=== PATIENT | male | born 1940 | race Caucasian/White ===

== ENCOUNTER 2016-07-20 00:02 | Observation (INO) | payer MEDICARE, OTHER ==
[~2016-07-20] VITALS: Ht 177.8 cm; Wt 78.9 kg
[~2016-07-20 00:02] MED LIST: ADV250INH INH; ASPI1TAB PO; COMBAER6 INH; METF500T PO; MUCI600T34 PO; VITA100066 PO; ZYRT10TA2 PO
[2016-07-20] MEDS ORDERED: MORPHINE 4 MG/ML 1ML SYRINGE As Ordered ONE ×3 (01:05→05:37)
[2016-07-20] MEDS ORDERED: ONDANSETRON 4MG/2ML VIAL (J2405) As Ordered ONE (01:05)
--- NOTE | 2016-07-20 02:00 | REPUSA ---
CLINICAL HISTORY: Edema. COMMENTS: Real time sonography with duplex doppler of the right lower extremity was performed with attention to the major deep venous structures. Evaluation reveals the right common femoral, superficial femoral and popliteal veins to be completely compressible without intraluminal thrombus. There is normal spontaneous phasic flow and augmentation . The greater saphenous/common femoral vein junction is patent. No reflux was noted. IMPRESSION: No evidence of DVT in right lower extremity. Thank you for your kind referral of this patient.
[2016-07-20] MEDS ORDERED: KETOROLAC 30 MG/ML VIAL (J1885) As Ordered ONE (04:23)
[2016-07-20] MEDS ORDERED: ONDANSETRON 4MG/2ML VIAL (J2405) IV PRN (06:00)
[2016-07-20] MEDS ORDERED: ACETAMINOPHEN TAB 650MG DOSE (2X325MG) PO PRN (06:00)
[2016-07-20] MEDS ORDERED: PERCOCET 5MG/325MG TAB PO PRN (06:00)
[2016-07-20] MEDS ORDERED: METF500T4 PO (07:19)
[2016-07-20] MEDS ORDERED: GUAI1TAB PO (07:20)
[2016-07-20] MEDS ORDERED: PRED10TA PO (07:21)
--- NOTE | 2016-07-20 07:26 | HPEPDOC ---
Medical History and Physical Date of Admission Jul 20, 2016 at 05:27 History and Physical PRIMARY CARE PROVIDER: Dr. Moon CHIEF COMPLAINT: Right hip pain HISTORY OF PRESENT ILLNESS: Patient is a 76-year-old male with past medical history significant for COPD, type 2 diabetes who presents to the emergency department complaining of a right- sided hip pain. Recent says that his pain began last Thursday when he was picking up some firewood. He says at that time he heard something pop and then got pain. He says that he saw his chiropractor on and they tried to adjust his hip. He presented to emergency department due to worsening of his pain. He currently rates his pain 7/10, at its worst 10/10. Pain is described as "like an ax blade to his hip." He is unable to bear weight on his right leg right now. Pain is located in the lateral aspect of his right hip. He denies any low back pain, knee pain, numbness, tingling, paresthesias. ALLERGIES: None PAST MEDICAL HISTORY: COPD, hil-sbttcwe-ksalqhnla diabetes PAST SURGICAL HISTORY: Left hand surgery, left eye surgery, appendectomy SOCIAL HISTORY: Patient is a former smoker. He quit approximately 18 years ago, smoked for 40 years before that, on average smoked approximately 2 packs per day. He drinks one to 2 alcoholic beverages per day. He denies any recreational drug use. He lives at home with his and dog. CODE STATUS: Full code REVIEW OF SYSTEMS: Constitutional: Positive for sweats tonight, denies fevers, chills HEENT: Head: denies headaches, dizziness, light-headedness. Eyes: denies blurry vision, double vision. Ears: denies hearing loss, tinnitus, ear pain. Nose: denies sinus pain, pressure, rhinorrhea, postnasal drip. Throat: denies sore throat, cough, difficulty swallowing Cardiovascular: denies chest discomfort/pain, palpitations Respiratory: Positive for occasional shortness of breath with activity Gastrointestinal: denies nausea, vomiting, diarrhea, constipation, abdominal pain, melena, hematochezia : denies dysuria, hematuria Musculoskeletal: Positive for right-sided hip pain, denies any other muscle aches or pains Neurological: denies numbness, tingling, paresthesias Lymphatics: denies palpable lymph nodes or swollen glands Integumentary: denies any cuts, rashes, bruises Endocrine: denies polyuria, polydipsia. PHYSICAL EXAMINATION: Vitals: Temperature 97.0, pulse 62, respiratory rate 20, blood pressure 154/72, pulse ox 96% on room air General: Patient awake in stretcher, alert and oriented, verbal and able to answer questions appropriately. He does not appear to be in any acute distress but does have visible pain when moving. HEENT: Head: normocephalic, atraumatic. Eyes: pupils equally reactive to light , conjunctiva are pink, sclera are nonicteric. Throat: buccal mucosa is pink and moist with no lesions in the oropharynx Respiratory: clear to auscultation bilaterally with no wheezes, rales, or rhonchi. Cardiovascular: regular rate and rhythm, with no murmurs, rubs or gallops. Abdomen: soft, nontender, nondistended, no hepatosplenomegaly appreciated. Bowel sounds present. Extremities: Tenderness to palpation over lateral aspect of her right hip, 5/5 strength in upper and lower extremities bilaterally Neurological: sensation intact and symmetrical in upper and lower extremities bilaterally Lymphatics: no palpable lymph nodes, swollen glands Integumentary: skin free from rashes, lesions, abrasions Vascular: Radial pulses palpable bilaterally LABORATORY DATA: CBC, BMP, ESR, CRP ordered RADIOLOGY: Right lower extreme in the ultrasound: No evidence for DVT Right hip x-ray: Interpreted by myself: Negative for fracture or dislocation ASSESSMENT: Patient is a 76-year-old male with right hip pain, inability to bear weight on right leg. Patient will be admitted for further evaluation and treatment. PLAN: #1: Right-sided trochanteric bursitis: Patient will be admitted to [facility] under care of Dr. Jones. Patient will be given Tylenol 650 mg by mouth every 4 hours when necessary, oxycodone 1-2 tabs by mouth every 4 hours when necessary for pain. Orthopedics has been consulted for evaluation for possible injection. Order for physical therapy evaluate and treat has been placed. Further evaluation with BMP, CBC, ESR, CRP. #2: Hpw-rbxhrsv-mlppmqliu type 2 diabetes: Last A1c in [facility] records from April 2016 show A1c of 6.1. For admission we will hold metformin while hospitalized, order placed for consistent carbohydrate diet. BMP has been ordered pending results from blood sugar patient may require a sliding scale insulin. #3: COPD: Order placed for DuoNeb 1 inhalation every 4 hours when necessary, Advair 250/50 one puff twice a day, Mucinex 600 mg by mouth twice a day, prednisone 10 mg by mouth every evening #4: Allergic rhinitis: Order placed for cetirizine 10 mg by mouth daily #5: Vitamin D deficiency: Order placed for vitamin D 1000 units by mouth daily #6: DVT prophylaxis: Order placed for heparin 5000 units subcutaneously every 8 hours My preceptor for this patient encounter was physically present in the building during the encounter and was fully available. As needed, all aspects of the patient interview, examination, medical decision making process, and medical care plan development were reviewed and approved by the preceptor. Preceptor is aware and concurs with the plan as stated in the body of this note and will attest to such by his/her cosignature. Attending Note: I was present for discussion and assisted with the development of the treatment plan for the patient above. The Resident was given guidance and the patient will be followed appropriately by an attending physician during the remaining hospital stay. Vital Signs Temperature 97.0, pulse 62, respiratory rate 20, blood pressure 154/72, pulse ox 96% on room air Home Medications Scheduled Aspirin (Aspirin 81) 81 Mg Tab 81 MG PO QPM Cetirizine HCl (Zyrtec Allergy) 10 Mg Tab 10 MG PO QPM Cholecalciferol (Vitamin D) 1,000 Unit Tab 1,000 UNIT PO QPM Docusate Sodium (Colace) 100 Mg Cap 100 MG PO BID Guaifenesin (Guaifenesin ER) 600 Mg Tab 600 MG PO BID Metformin Hydrochloride (Metformin HCl ER) 500 Mg Tab 500 MG PO BID Prednisone (Prednisone) 10 Mg Tab 10 MG PO QPM Salmeterol/Fluticasone (Advair Diskus 250-50 Mcg/Dose) 14 Puff/Inhaler Aerp 1 PUFF INH BID Scheduled PRN Albuterol/Ipratropium (Combivent Respimat 20-100 Mcg/Act) 1 Aer Aer 2 PUFF INH Q4H PRN PRN SHORTNESS OF BREATH Naproxen (Naproxen) 250 Mg Tab 250 MG PO BIDP PRN PRN pain Oxycodone/Acetaminophen (Oxycodone/Acetaminophen 5-325 mg) 1 Tab Tab 1 TAB PO Q6HP PRN PRN pain Allergies Coded Allergies: No Known Allergies (Verified Allergy, Unknown, 06/16/04) VINCE LYON DO Jul 20, 2016 07:26 ARIELA BURRELL DO Jul 28, 2016 14:37
[2016-07-20] MEDS ORDERED: IPRATROPIUM 0.5MG/ALBUTEROL 2.5MG INH SOL UD 3ML (DUONEB)(J7620) INH PRN (07:30)
[2016-07-20 08:00] VITALS: BP 143/69
[2016-07-20] MEDS ORDERED: PERCOCET 5MG/325MG TAB As Ordered ONE (08:22)
[2016-07-20 08:28] LABS: MEAN CORPUSCULAR HEMOGLOBIN 33.1 pg (27.0-33.0); MEAN CORPUSCULAR HGB CONC 33.7 g/dl (32.0-36.5); MEAN CORPUSCULAR VOLUME 98.1 fl (80.0-96.0); RED CELL DISTRIBUTION WIDTH 12.6 % (11.5-14.5); WHITE BLOOD COUNT 7.7 K/mm3 (4.0-10.0)
[2016-07-20] MEDS: PERCOCET 5MG/325MG TAB PO PRN ×2 (08:29→20:17)
[2016-07-20 08:36] LABS: ANION GAP 6 MEQ/L (8-16); BLOOD UREA NITROGEN 18 MG/DL (7-18); CALCIUM LEVEL 9.2 MG/DL (8.8-10.2); CARBON DIOXIDE LEVEL 31 MEQ/L (21-32); CHLORIDE LEVEL 105 MEQ/L (98-107); CREATININE FOR GFR 0.97 MG/DL (0.70-1.30); GLOMERULAR FILTRATION RATE > 60.0 (>42); GLUCOSE, FASTING 145 MG/DL (83-110); POTASSIUM SERUM 4.1 MEQ/L (3.5-5.1); SODIUM LEVEL 142 MEQ/L (136-145)
[2016-07-20] MEDS ORDERED: DEXTROSE 50% 50 ML SYRINGE IV PRN (08:45)
[2016-07-20] MEDS ORDERED: GLUCAGON FOR INJ 1 MG VIAL (J1610) SC PRN (08:45)
[2016-07-20] MEDS ORDERED: GLUCOSE 4 GM CHEW TABLET PO PRN (08:45)
--- NOTE | 2016-07-20 08:50 | REP ---
Clinical: Pain Technique: AP and frog-lateral views of the right hip. Findings: Moderate arthritic degenerative changes. No acute fracture or dislocation. Impression: Moderate degenerative changes. No fracture or dislocation. Signed by Cristi Diehl MD 07/20/2016 08:41 A
[2016-07-20] MEDS: guaiFENesin ER 600 MG TAB PO SCH ×2 (09:27→20:15)
[2016-07-20] MEDS: ADVAIR DISKUS 250/50 INH PWD INH SCH ×2 (10:30→20:29)
[2016-07-20] MEDS: HumaLOG INSULIN (NovoLOG) PER UNIT SC SCH ×3 (12:00→21:00)
[2016-07-20] MEDS ORDERED: CARISOPRODOL 350 MG TAB As Ordered ONE (13:21)
[2016-07-20] MEDS ORDERED: GABAPENTIN 100 MG CAP As Ordered ONE (13:21)
[2016-07-20] MEDS: CARISOPRODOL 350 MG TAB PO SCH ×2 (13:22→20:16)
[2016-07-20] MEDS: GABAPENTIN 100 MG CAP PO SCH ×2 (13:22→20:15)
[2016-07-20] MEDS: LIDOCAINE 5% (LIDODERM) PATCH TD SCH (13:26)
[2016-07-20 14:00] VITALS: BP 160/75
--- NOTE | 2016-07-20 15:27 | EDDOCDS ---
Nurse's Notes [facility] Name: Jose Rivera Age: 76 yrs Sex: Male : 1940 Arrival Date: 07/20/2016 Time: 00:02 Bed Admit Hold Private MD: Diagnosis: Pain in right hip;Difficulty in walking, not elsewhere classified Presentation: 07/20 00:05 Presenting complaint: EMS states: right sided hip cause, pt thinks due to a pinched mlc nerve. pain starting Thursday, seen chiropractor . pt is unable to bear weight on hip. Adult Sepsis Screening: The patient does not have new or worsening altered mentation. Patient's respiratory rate is less than 22. Systolic blood pressure is greater than 100. Patient has a qSOFA score of 0- Negative Sepsis Screen. Suicide/Homicide risk assessment- the patient denies having any suicidal and/or homicidal ideations and does not present with any other emotional, behavioral or mental health complaints. 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 Transition of care: patient was not received from another setting of care. 00:05 Acuity: KELLY Level 3 mlc 00:05 Method Of Arrival: Ambulance mlc Triage Assessment: 00:05 General: pt states he moved a piece of wood and that is when pain started. mlc 00:09 General: Appears in no apparent distress, uncomfortable, Behavior is cooperative. Pain: mlc Location: right hip Pain currently is 7 out of 10 on a pain scale. The patient is triaged at the bedside. See Assessment in Nurses Notes section of ED record. Neurological: Level of Consciousness is awake, alert, obeys commands, Oriented to person, place, time. Respiratory: Airway is patent Respiratory effort is even, unlabored, Respiratory pattern is regular. Derm: Skin is pink, warm & dry. Musculoskeletal: Range of motion limited in right hip. Historical: - Allergies: No known drug Allergies; - Home Meds: 1. metformin 500 mg Oral tab daily 2. aspirin 81 mg Oral tab 1 tab once daily - PMHx: COPD; Diabetes - NIDDM: controlled; - PSHx: left hand; Appendectomy; - Social history: Smoking status: Patient states former smoker of tobacco. No barriers to communication noted, The patient speaks fluent Congolese. - Family history: Not pertinent. - : The pt / caregiver states he / she is not on anticoagulants. Home medication list is obtained from the patient. - Exposure Risk Screening:: None identified. Screenin:00 Screening information is obtained from the patient. Fall risk: At risk due to pain in js15 right hip. The following interventions are performed due to a positive Fall Risk Screen: side rails upx2, bed in low position, call light in reach, family at bedside. Assistance ADL's: requires no assistance with activities of daily living. Abuse/DV Screen: The patient / caregiver reports he/she is: not in a situation that causes fear, pain or injury. Nutritional screening: No deficits noted. Advance Directives: There is no active DNR order. home support is adequate. Assessment: 01:00 General: Appears in no apparent distress, uncomfortable, Behavior is appropriate for [facility] age, cooperative. Pain: Location: right hip Pain currently is 8 out of 10 on a pain scale. Neurological: Level of Consciousness is awake, alert, obeys commands, Oriented to person, place, time. Respiratory: Airway is patent Respiratory effort is even, unlabored, Respiratory pattern is regular, symmetrical. Derm: Skin is pink, warm & dry. 02:00 Reassessment: Patient appears in no apparent distress at this time. Pt resting on [facility] stretcher, respirations even and unlabored; skin pink, warm, dry, reports pain 3/10 in right hip. 03:00 Reassessment: Patient appears in no apparent distress at this time. Pt resting on [facility] stretcher with eyes closed; respirations even and unlabored; skin pink, warm, dry. 04:30 General: Appears in no apparent distress, comfortable, to be sleeping. Behavior is. js Respiratory: Airway is patent Respiratory effort is even, unlabored, Respiratory pattern is regular, symmetrical. Derm: Skin is pink, warm & dry. 05:30 Reassessment: Patient appears in no apparent distress at this time. Hospitalist at [facility] bedside, pt awake and alert, respirations even and unlabored; skin pink, warm, dry. 06:30 Reassessment: Patient appears in no apparent distress at this time. Pt appears to be [facility] sleeping upon entry to room; arouses easily to verbal stimuli; respirations even and unlabored; skin pink, warm, dry. Vital Signs: 00:09 BP 191 / 101; Pulse 66; Resp 20; Temp 97.0(O); Pulse Ox 100% on R/A; Weight 79.38 kg; [facility] Height 5 ft. 10 in. (177.80 cm); Pain 7/10; 01:40 Pain 3/10; js15 05:39 BP 154 / 72 (auto/); js15 05:41 Pulse 60 MON; Pulse Ox 94% ; js15 06:15 BP 165 / 78 (auto/); js15 06:17 Pulse 60 MON; Pulse Ox 92% ; js15 06:37 Temp 97.2(O); js15 00:09 Body Mass Index 25.11 (79.38 kg, 177.80 cm) [facility] Vitals: 00:09 Log In Time N/A - ambulance arrival. [facility] ED Course: 00:03 Patient visited by Bob Galdamez, Button Clamper. ml3 00:03 Kristen Duncan,CAT is Primary Nurse. ml3 00:03 Shelley Simeon,CAT is Primary Nurse. mm11 00:03 Patient moved to Waiting ml3 00:03 Patient moved to 2 ml3 00:03 Patient moved to 13 mm11 00:07 Triage Initiated mlc 00:13 Patient visited by Cheryl Ann RN. mlc 00:46 Arthur Varela DO is Attending Physician. mm11 00:46 Patient visited by Arthur Varela DO. mm11 00:54 Patient visited by Arthur Varela DO. mm11 00:54 Primary Nurse role handed off by Shelley Simeon RN anat 01:00 The patient / caregiver is instructed regarding the plan of care and ED course. js15 01:02 Inserted saline lock: 18 gauge in left antecubital area The patient tolerated the js15 procedure well. 01:07 Patient moved to Ultrasound hgl 01:22 Patient moved to 13 hgl 01:36 Patient visited by Lydia Morgan RN. js15 02:28 DVT US Lower Returned. EDMS 02:37 Patient visited by Lydia Morgan,CAT. js15 03:45 Patient visited by Arthur Varela DO. mm11 04:54 Patient visited by Lydia Morgan,CAT. js15 05:18 Bennett Potts DO is Hospitalizing Provider. mm11 06:31 Patient moved to Admit Hold ml3 06:40 Patient moved to Jun 06:41 Patient moved to Admit Hold ml3 09:13 Hip, (AP/Lat) Returned. EDMS 11:44 Primary Nurse role handed off by Kristen Duncan,RN kr3 Administered Medications: 01:10 Drug: morphine 4 mg [morphine 4 mg/mL intravenous cartridge (1 mL)] Route: IVP; Site: js15 left antecubital; 01:40 Follow up: Pain 3/10 Adult; Response: Pain is decreased js15 01:10 Drug: Ondansetron 4 mg [ondansetron HCl 2 mg/mL intravenous solution (2 mL)] Route: js15 IVP; Site: left antecubital; 02:38 Drug: morphine 4 mg [morphine 4 mg/mL intravenous cartridge (1 mL)] Route: IVP; Site: js15 left antecubital; 03:15 Follow up: Response: Pain is decreased js15 04:30 Drug: ketorolac 15 mg [ketorolac 30 mg/mL (1 mL) injection solution (0.5 mL)] Route: js15 IVP; Site: left antecubital; 04:30 Drug: Diazepam 5 mg [diazepam 5 mg/mL injection syringe (1 mL)] Route: IVP; Site: left js15 antecubital; 05:41 Drug: morphine 4 mg [morphine 4 mg/mL intravenous cartridge (1 mL)] Route: IVP; Site: js15 left antecubital; 06:38 Follow up: Response: pt resting on stretcher with eyes closed; appears to be sleeping js15 Order Results: Lab Order: COMPLETE BLOOD COUNT; SPEC'M 07/20/16 08:01 Test: WHITE BLOOD COUNT; Value: 7.7; Range: 4.0-10.0; Units: K/mm3; Status: F Test: RED BLOOD COUNT; Value: 4.26; Range: 4.30-6.10; Abnormal: Below low normal; Units: M/mm3; Status: F Test: HEMOGLOBIN; Value: 14.1; Range: 14.0-18.0; Units: g/dl; Status: F Test: HEMATOCRIT; Value: 41.8; Range: 42.0-52.0; Abnormal: Below low normal; Units: %; Status: F Test: MEAN CORPUSCULAR VOLUME; Value: 98.1; Range: 80.0-96.0; Abnormal: Above high normal; Units: fl; Status: F Test: MEAN CORPUSCULAR HEMOGLOBIN; Value: 33.1; Range: 27.0-33.0; Abnormal: Above high normal; Units: pg; Status: F Test: MEAN CORPUSCULAR HGB CONC; Value: 33.7; Range: 32.0-36.5; Units: g/dl; Status: F Test: RED CELL DISTRIBUTION WIDTH; Value: 12.6; Range: 11.5-14.5; Units: %; Status: F Test: PLATELET COUNT, AUTOMATED; Value: 190; Range: 150-450; Units: k/mm3; Status: F Lab Order: BASIC METABOLIC PROFILE; SPEC07/20/16 08:01 Test: GLUCOSE, FASTING; Value: 145; Range: 83-110; Abnormal: Above high normal; Units: MG/DL; Status: F Test: BLOOD UREA NITROGEN; Value: 18; Range: 7-18; Units: MG/DL; Status: F Test: CREATININE FOR GFR; Value: 0.97; Range: 0.70-1.30; Units: MG/DL; Status: F Test: GLOMERULAR FILTRATION RATE; Value: > 60.0; Range: >42; Status: F Test: SODIUM LEVEL; Value: 142; Range: 136-145; Units: MEQ/L; Status: F Test: POTASSIUM SERUM; Value: 4.1; Range: 3.5-5.1; Units: MEQ/L; Status: F Test: CHLORIDE LEVEL; Value: 105; Range: 98-107; Units: MEQ/L; Status: F Test: CARBON DIOXIDE LEVEL; Value: 31; Range: 21-32; Units: MEQ/L; Status: F Test: ANION GAP; Value: 6; Range: 8-16; Abnormal: Below low normal; Units: MEQ/L; Status: F Test: CALCIUM LEVEL; Value: 9.2; Range: 8.8-10.2; Units: MG/DL; Status: F Test Note: ; Units are mL/min/1.73 m2 Chronic Kidney Disease Staging per NKF: Stage I & II GFR >=60 Normal to Mildly Decreased Stage III GFR 30-59 Moderately Decreased Stage IV GFR 15-29 Severely Decreased Stage V GFR <15 Very Little GFR Left ESRD GFR <15 on FEED MILL OPERATOR Lab Order: ERYTHROCYTE SEDIMENTATION RATE; SPEC07/20/16 08:01 Test: ERYTHROCYTE SEDIMENTATION RATE; Value: 13; Range: 0-20; Units: mm/hr; Status: F Lab Order: C REACTIVE PROTEIN QUANTITATIV; SPEC07/20/16 08:01 Test: C REACTIVE PROTEIN QUANTITATIV; Value: < 0.30; Range: 0.00-0.30; Units: MG/DL; Status: F Lab Order: Fingerstick Blood Sugar; SPEC07/20/16 08:17 Test: BEDSIDE GLUCOSE; Value: 139; Range: 83-110; Abnormal: Above high normal; Units: MG/DL; Status: F Lab Order: Fingerstick Blood Sugar; SPEC07/20/16 12:31 Test: BEDSIDE GLUCOSE; Value: 110; Range: 83-110; Units: MG/DL; Status: F Radiology Order: Hip, (AP/Lat) Test: Hip, (AP/Lat) REASON FOR EXAMINATION: pain; Clinical: Pain; ; Technique: AP and frog-lateral views of the right hip.; ; Findings: Moderate arthritic degenerative changes. No acute fracture or; dislocation.; ; Impression:; ; Moderate degenerative changes. No fracture or dislocation.; ; ; Signed by; Cristi Diehl MD 07/20/2016 08:41 A; Radiology Order: DVT US Lower Test: DVT US Lower REASON FOR EXAMINATION: pain; ; CLINICAL HISTORY: Edema.; COMMENTS:; Real time sonography with duplex doppler of the right lower extremity was performed with attention to; the major deep venous structures.; Evaluation reveals the right common femoral, superficial femoral and popliteal veins to be completely; compressible without intraluminal thrombus. There is normal spontaneous phasic flow and augmentation; . The greater saphenous/common femoral vein junction is patent. No reflux was noted.; IMPRESSION:; No evidence of DVT in right lower extremity.; Thank you for your kind referral of this patient.; ; Outcome: 05:19 Decision to Hospitalize by Provider. mm11 15:26 Patient left the ED. ml6 Signatures: Dispatcher [employer] EDMS Escalona Rocio Guido, RN RN bassam Galdamez, JoyGretchen, Button Clamper Unit ml3 Emily Castano,RN RN kr3 Arthur Varela, DO DO mm11 Arthur Hughes, RN RN ml6 Beth, Geri, STEAM BOX HAND STEAM BOX HAND anat Ly, Saman hgl Cheryl Ann,RN RN mlc Lydia Morgan,RN RN js15 MTDD
--- NOTE | 2016-07-20 15:27 | EDDOCDS ---
Physician Documentation [facility] Name: Jose Rivera Age: 76 yrs Sex: Male : 1940 Arrival Date: 07/20/2016 Time: 00:02 Bed Admit Hold Private MD: Disposition: 07/20/16 05:19 Hospitalization ordered by Bennett Potts for Inpatient Admission. Preliminary diagnosis are Pain in right hip, Difficulty in walking, not elsewhere classified. - Bed requested for 4 [place]. - Status is Inpatient Admission. ml6 - Condition is Stable. - Problem is an ongoing problem. - Symptoms are unchanged. Historical: - Allergies: No known drug Allergies; - Home Meds: 1. metformin 500 mg Oral tab daily 2. aspirin 81 mg Oral tab 1 tab once daily - PMHx: COPD; Diabetes - NIDDM: controlled; - PSHx: left hand; Appendectomy; - Social history: Smoking status: Patient states former smoker of tobacco. No barriers to communication noted, The patient speaks fluent Georgian. - Family history: Not pertinent. - : The pt / caregiver states he / she is not on anticoagulants. Home medication list is obtained from the patient. - Exposure Risk Screening:: None identified. Vital Signs: 07/20 00:09 BP 191 / 101; Pulse 66; Resp 20; Temp 97.0(O); Pulse Ox 100% on R/A; Weight 79.38 kg / mlc 175 lbs; Height 5 ft. 10 in. (177.80 cm); Pain 7/10; 01:40 Pain 3/10; js15 05:39 BP 154 / 72 (auto/); js15 05:41 Pulse 60 MON; Pulse Ox 94% ; js15 06:15 BP 165 / 78 (auto/); js15 06:17 Pulse 60 MON; Pulse Ox 92% ; js15 06:37 Temp 97.2(O); js15 00:09 Body Mass Index 25.11 (79.38 kg, 177.80 cm) mlc MDM: 00:55 IV Saline Lock ordered. mm11 00:55 morphine 4 mg IVP every 30 minutes; Document pain score/vitals after each dose (Hold if mm11 SBP < 90mmHg) x2 ordered. 00:55 Ondansetron 4 mg IVP once ordered. mm11 00:57 DVT US Lower Ordered. EDMS 00:57 Hip, (AP/Lat) Ordered. EDMS 00:58 Financial registration complete. pm4 03:47 ketorolac 15 mg IVP once ordered. mm11 03:47 Diazepam 5 mg IVP once ordered. mm11 04:42 Ambulate patient to assess pain tolerance ordered. mm11 05:15 BED REQUEST+ADM ordered. EDMS 05:23 morphine 4 mg IVP every 30 minutes; Document pain score/vitals after each dose (Hold if mm11 SBP < 90mmHg) x2 ordered. 05:26 COMPLETE BLOOD COUNT Ordered. EDMS 05:26 BASIC METABOLIC PROFILE Ordered. EDMS 05:29 Admission / Observation Status ordered. EDMS 06:05 CONSISTENT CARBOHYDRATES ordered. EDMS 06:06 PHYSICAL THERAPY EVAL & TREAT ordered. EDMS 07:45 ERYTHROCYTE SEDIMENTATION RATE Ordered. EDMS 07:45 C REACTIVE PROTEIN QUANTITATIV Ordered. EDMS 08:29 Fingerstick Blood Sugar Ordered. EDMS 08:41 NM-Bone Scan, 3 Phase Ordered. EDMS 12:39 Fingerstick Blood Sugar Ordered. EDMS Administered Medications: 01:10 Drug: morphine 4 mg [morphine 4 mg/mL intravenous cartridge (1 mL)] Route: IVP; Site: js15 left antecubital; 01:40 Follow up: Pain 3/10 Adult; Response: Pain is decreased js15 01:10 Drug: Ondansetron 4 mg [ondansetron HCl 2 mg/mL intravenous solution (2 mL)] Route: js15 IVP; Site: left antecubital; 02:38 Drug: morphine 4 mg [morphine 4 mg/mL intravenous cartridge (1 mL)] Route: IVP; Site: js15 left antecubital; 03:15 Follow up: Response: Pain is decreased js15 04:30 Drug: ketorolac 15 mg [ketorolac 30 mg/mL (1 mL) injection solution (0.5 mL)] Route: js15 IVP; Site: left antecubital; 04:30 Drug: Diazepam 5 mg [diazepam 5 mg/mL injection syringe (1 mL)] Route: IVP; Site: left js15 antecubital; 05:41 Drug: morphine 4 mg [morphine 4 mg/mL intravenous cartridge (1 mL)] Route: IVP; Site: js15 left antecubital; 06:38 Follow up: Response: pt resting on stretcher with eyes closed; appears to be sleeping js15 Signatures: Dispatcher [employer] EDMS Erika Hong, RN RN Atrhur Pickering, DO mm11 Arthur Hughes, RN RN ml6 Cheryl Ann,RN RN mlc Lydia Morgan RN RN js15 Tom Suh, Reg Reg pm4 The chart was reviewed and I authenticate all verbal orders and agree with the evaluation and treatment provided.Corrections: (The following items were deleted from the chart) 07:44 05:28 ERYTHROCYTE SEDIMENTATION RATE ordered. EDMS EDMS 07:44 05:28 C REACTIVE PROTEIN QUANTITATIV ordered. EDMS EDMS MTDD
[2016-07-20 15:30] VITALS: BP 170/78
[2016-07-20] MEDS: KETOROLAC 30 MG/ML VIAL (J1885) IV PRN (19:09)
[2016-07-20] MEDS: CETIRIZINE (ZyrTEC) 10 MG TAB PO SCH (20:15)
[2016-07-20] MEDS: VITAMIN D 1,000 INTERNATIONAL UNITS TABLET PO SCH (20:15)
[2016-07-20] MEDS: ASPIRIN 81 MG ENTERIC TAB PO SCH (20:15)
[2016-07-20] MEDS: predniSONE 10 MG TAB PO SCH (20:18)
[2016-07-20] MEDS: **NOTE PATIENT COMMENT** MISC XX SCH (20:18)
[2016-07-20 22:00] VITALS: BP 146/70
[2016-07-21] MEDS: PERCOCET 5MG/325MG TAB PO PRN ×3 (05:47→15:28)
[2016-07-21 05:56] LABS: MEAN CORPUSCULAR HEMOGLOBIN 32.6 pg (27.0-33.0); MEAN CORPUSCULAR HGB CONC 33.7 g/dl (32.0-36.5); RED CELL DISTRIBUTION WIDTH 12.4 % (11.5-14.5); WHITE BLOOD COUNT 6.3 K/mm3 (4.0-10.0)
[2016-07-21 06:00] VITALS: BP 130/60
[2016-07-21 06:15] LABS: ANION GAP 8 MEQ/L (8-16); BLOOD UREA NITROGEN 20 MG/DL (7-18); CARBON DIOXIDE LEVEL 30 MEQ/L (21-32); CHLORIDE LEVEL 105 MEQ/L (98-107); CREATININE FOR GFR 0.84 MG/DL (0.70-1.30); GLOMERULAR FILTRATION RATE > 60.0 (>42); GLUCOSE, FASTING 149 MG/DL (83-110); POTASSIUM SERUM 4.3 MEQ/L (3.5-5.1); SODIUM LEVEL 143 MEQ/L (136-145)
[2016-07-21] MEDS: HumaLOG INSULIN (NovoLOG) PER UNIT SC SCH ×4 (08:46→21:00)
[2016-07-21] MEDS: guaiFENesin ER 600 MG TAB PO SCH ×2 (08:47→21:11)
[2016-07-21] MEDS: GABAPENTIN 100 MG CAP PO SCH ×2 (08:47→21:11)
[2016-07-21] MEDS: LIDOCAINE 5% (LIDODERM) PATCH TD SCH (08:47)
[2016-07-21] MEDS: CARISOPRODOL 350 MG TAB PO SCH ×2 (08:47→21:11)
--- NOTE | 2016-07-21 08:56 | IPNPDOC ---
Text Note Date of Service The patient was seen on 07/21/16. NOTE Subjective: Patient is a 76-year-old male with right-sided trochanteric bursitis seen for hospitalist follow-up. Patient says that his hip is feeling much better today. He is still having some pain which she rates 1-2 out of 10 but says it is 100% better than it was yesterday. He was able to walk yesterday to the bathroom. He has not seen physical therapy yet. He denies any fevers, chills, sweats, chest pain/pressure, numbness, tingling, paresthesias, lower extremity weakness. He says his shortness of breath is at his baseline. Objective: Vital signs: Temperature 96.8, pulse 63, respiratory rate 18, blood pressure 130 /60, pulse ox 94% on room air Gen.: Patient awake, alert and oriented, verbal and able to answer questions appropriately. Patient does not appear to be in any acute distress Heart: Regular rate and rhythm, normal S1-S2. No murmurs, rubs, clicks or gallops Lungs: Clear to auscultation bilaterally. No wheezes, rales or rhonchi Extremities: No swelling in either lower extremity, mild right-sided lateral hip tenderness to palpation, 5/5 strength in lower extremities bilaterally, left lower extremity nontender to palpation Laboratory data: CBC: White blood cells 6.3, H&H 14.0/41.6, platelets 191 Chemistry: Sodium 143, potassium 4.3, chloride 105, carbon dioxide Arty, BUN 20 , creatinine 0.84, glucose 149, calcium 9.0 Assessment: Patient is a 76-year-old male with right-sided trochanteric bursitis. He has not yet seen physical therapy but has improved from yesterday. Plan: #1: Right-sided trochanteric bursitis: Patient has improved from yesterday. Patient has not yet seen physical therapy. Patient has seen orthopedics and they have ordered a bone scan. We appreciate their input in this patient. He will continue on his current medications carisoprodol 350 mill grams by mouth twice a day, gabapentin 200 mg by mouth twice a day, ketorolac 30 mg IV every 6 hours when necessary, lidocaine 1 patch transdermal daily, Percocet 5/325 one to 2 tabs by mouth every 4 hours when necessary for pain #2: Hyc-vmhgjbk-hbeqzpgxy type 2 diabetes mellitus: Patient has been placed on sliding scale, continue current medications #3: COPD: Stable, continue current medications #4: Allergic rhinitis: Stable, continue current medications #5: Vitamin D deficiency: Stable, continue current current medications My preceptor for this patient encounter was physically present in the building during the encounter and was fully available. As needed, all aspects of the patient interview, examination, medical decision making process, and medical care plan development were reviewed and approved by the preceptor. Preceptor is aware and concurs with the plan as stated in the body of this note and will attest to such by his/her Tevin Mccormick, I+O Tevin DURAN I+O Laboratory Tests 07/21/16 05:43 Calcium Level 9.0, Red Blood Count 4.29 L, Mean Corpuscular Volume 97.0 H, Mean Corpuscular Hemoglobin 32.6, Mean Corpuscular Hemoglobin Concent 33.7, Red Cell Distribution Width 12.4 Vital Signs Date Time Temp Pulse Resp B/P Pulse Ox O2 Delivery O2 Flow Rate FiO2 07/21/16 06:17 18 07/21/16 06:00 96.8 63 130/60 94 Room Air I&O- Last 24 Hours up to 6 AM 07/21/16 06:00 Intake Total 570 ml Output Total 400 ml Balance 170 ml VINCE LYON DO Jul 21, 2016 08:56 VINCE LYON DO Jul 21, 2016 08:56
[2016-07-21] MEDS: ADVAIR DISKUS 250/50 INH PWD INH SCH ×2 (09:00→19:53)
[2016-07-21 14:00] VITALS: BP 153/67
--- NOTE | 2016-07-21 15:18 | REP ---
THREE-PHASE BONE SCAN: 07/21/2016. Comparison: 07/20/2016 right hip series. Clinical history: Right hip pain. Difficulty weightbearing. Technique. The patient received a bolus of 22 mCi technetium 99m - MDP via an IV with anterior posterior flow pool and delayed images along with pool and delayed images of the bilateral hips in the lateral projection. Flow images show symmetric flow bilaterally with no abnormal accumulation. Pool and delayed images show no abnormal uptake about the pelvis or hips. There is activity in the bladder and ureters on the pool images. I see no abnormal activity in the SI joints, hips, acetabuli or elsewhere in the pelvis. There is no abnormal uptake in the region of the femoral head. Impression: 1. No focal abnormal uptake to suggest fracture or destructive lesion about the hips, hemipelvis on either side or sacrum/SI joints. Nothing acute. Signed by Ayan Resendez MD 07/21/2016 05:25 P
[2016-07-21] MEDS: **NOTE PATIENT COMMENT** MISC XX SCH (21:00)
[2016-07-21] MEDS: CETIRIZINE (ZyrTEC) 10 MG TAB PO SCH (21:11)
[2016-07-21] MEDS: ASPIRIN 81 MG ENTERIC TAB PO SCH (21:11)
[2016-07-21] MEDS: VITAMIN D 1,000 INTERNATIONAL UNITS TABLET PO SCH (21:11)
[2016-07-21] MEDS: predniSONE 10 MG TAB PO SCH (21:11)
[2016-07-21 22:00] VITALS: BP 169/80
[2016-07-21] MEDS: KETOROLAC 30 MG/ML VIAL (J1885) IV PRN (22:45)
[2016-07-22 06:00] VITALS: BP 141/67
[2016-07-22 06:02] LABS: MEAN CORPUSCULAR HEMOGLOBIN 33.1 pg (27.0-33.0); MEAN CORPUSCULAR HGB CONC 34.2 g/dl (32.0-36.5); MEAN CORPUSCULAR VOLUME 96.8 fl (80.0-96.0); RED CELL DISTRIBUTION WIDTH 12.4 % (11.5-14.5)
[2016-07-22 06:23] LABS: ANION GAP 7 MEQ/L (8-16); BLOOD UREA NITROGEN 24 MG/DL (7-18); CALCIUM LEVEL 8.8 MG/DL (8.8-10.2); CARBON DIOXIDE LEVEL 29 MEQ/L (21-32); CHLORIDE LEVEL 105 MEQ/L (98-107); CREATININE FOR GFR 0.95 MG/DL (0.70-1.30); GLOMERULAR FILTRATION RATE > 60.0 (>42); GLUCOSE, FASTING 153 MG/DL (83-110); POTASSIUM SERUM 4.5 MEQ/L (3.5-5.1); SODIUM LEVEL 141 MEQ/L (136-145)
[2016-07-22] MEDS: ADVAIR DISKUS 250/50 INH PWD INH SCH ×2 (07:14→19:56)
[2016-07-22] MEDS ORDERED: NS 1,000 ML IV SCH (07:30)
[2016-07-22] MEDS: LIDOCAINE 5% (LIDODERM) PATCH TD SCH (08:19)
[2016-07-22] MEDS: guaiFENesin ER 600 MG TAB PO SCH ×2 (08:19→20:13)
[2016-07-22] MEDS: GABAPENTIN 100 MG CAP PO SCH ×2 (08:19→20:13)
[2016-07-22] MEDS: HumaLOG INSULIN (NovoLOG) PER UNIT SC SCH ×4 (08:19→20:14)
[2016-07-22] MEDS: CARISOPRODOL 350 MG TAB PO SCH ×2 (08:19→20:13)
--- NOTE | 2016-07-22 09:10 | IPNPDOC ---
Text Note Date of Service The patient was seen on 07/22/16. NOTE Subjective: Patient is a 76-year-old male with right-sided hip pain seen for hospitalist follow up. Patient says he is not doing too bad this morning. He did physical therapy and that went well yesterday. He was having some worsening of his pain last night. He says that his pain comes and goes. He currently rates his pain a 1-1 1/2 out of 10. Pain is described as a dull ache and is primarily located in the lateral aspect of his hip with some radiation down his leg down to near his knee. He is complaining of some constipation. He denies any fevers, chills, sweats, chest pain/pressure, or extremity warmth or erythema, weakness, numbness , tingling, paresthesias. He reports that his breathing is at his baseline. Objective: Vital signs: Temperature 96.8, pulse 60, respiratory rate 18, blood pressure 141 /67, pulse ox 96% on room air Gen.: Patient awake, alert and oriented, verbal and able to answer questions appropriately. Patient does not appear to be in any acute distress Heart: Regular rate and rhythm, normal S1-S2. No murmurs, rubs, clicks or gallops Lungs: Clear to auscultation bilaterally. No wheezes, rales or rhonchi Musculoskeletal: 5/5 strength present throughout lower extremities Neurological: Sensation intact and symmetrical throughout lower extremities Extremities: No swelling in either lower extremity Laboratory data: CBC: White blood cells 5.0, H&H 13.9/40.6, platelets 186 Chemistry: Sodium 141, potassium 4.5, chloride 105, carbon monoxide 29, BUN 24, creatinine 0.95, glucose 153, calcium 8.8 Imaging: Bone scan: No focal abnormal uptake to suggest fracture or destructive lesion about the hips, hemipelvis on either side or sacrum/SI joints. Nothing acute. Assessment: Patient is a 76-year-old male with right-sided hip pain. He has seen physical therapy yesterday, has been cleared for discharge. He continues to improve daily. Plan: #1: Right-sided hip pain: Patient has improved from yesterday. Patient will continue to work with physical therapy. Bone scan did not show any acute fracture. Patient will continue on carisoprodol 350 mg by mouth twice a day, gabapentin 200 mg by mouth twice a day, ketorolac 30 mg IV every 6 hours when necessary, lidocaine patch 1 patch transdermal daily, Percocet 5/325 one to 2 tabs by mouth every 4 hours when necessary for pain. Patient tolerating meals without difficulty. IV fluids can be discontinued. Due to patient having pain radiating down to his knee there is concern that this could be secondary to lumbar radiculopathy. Orders have been placed for lumbar MRI, MRI of the right hip. #2: Constipation: Order placed for docusate 100 mg by mouth twice a day, MiraLAX 1 packet by mouth twice a day, milk of magnesia 30 mL by mouth every 6 hours when necessary. #3: The-vyqkiuk-hzfdpeidw type 2 diabetes mellitus: Stable, continue current medications #4: COPD: Stable, continue current medications #5: Allergic rhinitis: Stable, continue current medications #6: Vitamin D deficiency: Stable, continue current medications #6: DVT prophylaxis: Order placed for teds and sequentials Disposition: Patient doing well, anticipate discharge within next 24-48 hours with referral to outpatient/home physical therapy. My preceptor for this patient encounter was physically present in the building during the encounter and was fully available. As needed, all aspects of the patient interview, examination, medical decision making process, and medical care plan development were reviewed and approved by the preceptor. Preceptor is aware and concurs with the plan as stated in the body of this note and will attest to such by his/her pitaatTevin Jason, I+O VSTevin, I+O Laboratory Tests 07/22/16 05:37 Calcium Level 8.8, Red Blood Count 4.19 L, Mean Corpuscular Volume 96.8 H, Mean Corpuscular Hemoglobin 33.1 H, Mean Corpuscular Hemoglobin Concent 34.2, Red Cell Distribution Width 12.4 Vital Signs Date Time Temp Pulse Resp B/P Pulse Ox O2 Delivery O2 Flow Rate FiO2 07/22/16 06:00 96.8 60 18 141/67 96 Room Air I&O- Last 24 Hours up to 6 AM 07/22/16 06:00 Intake Total 1020 ml Output Total 0 ml Balance 1020 ml VINCE LYON DO Jul 22, 2016 09:10
[2016-07-22] MEDS: DOCUSATE SODIUM 100 MG CAP PO SCH ×2 (10:28→20:13)
[2016-07-22] MEDS: PERCOCET 5MG/325MG TAB PO PRN ×3 (13:16→23:26)
[2016-07-22 14:00] VITALS: BP 167/76
[2016-07-22] MEDS ORDERED: MOM 30ML SUSPENSION UDC PO PRN (15:15)
--- NOTE | 2016-07-22 16:27 | EDDOCDS ---
Physician Documentation [facility] Name: Jose Rivera Age: 76 yrs Sex: Male : 1940 Arrival Date: 07/20/2016 Time: 00:02 Bed Admit Hold Private MD: Disposition: 07/20/16 05:19 Hospitalization ordered by Bennett Potts for Inpatient Admission. Preliminary diagnosis are Pain in right hip, Difficulty in walking, not elsewhere classified. - Bed requested for 4 [place]. - Status is Inpatient Admission. ml6 - Condition is Stable. - Problem is an ongoing problem. - Symptoms are unchanged. Historical: - Allergies: No known drug Allergies; - Home Meds: 1. metformin 500 mg Oral tab daily 2. aspirin 81 mg Oral tab 1 tab once daily - PMHx: COPD; Diabetes - NIDDM: controlled; - PSHx: left hand; Appendectomy; - Social history: Smoking status: Patient states former smoker of tobacco. No barriers to communication noted, The patient speaks fluent Faroese. - Family history: Not pertinent. - : The pt / caregiver states he / she is not on anticoagulants. Home medication list is obtained from the patient. - Exposure Risk Screening:: None identified. Vital Signs: 07/20 00:09 BP 191 / 101; Pulse 66; Resp 20; Temp 97.0(O); Pulse Ox 100% on R/A; Weight 79.38 kg / mlc 175 lbs; Height 5 ft. 10 in. (177.80 cm); Pain 7/10; 01:40 Pain 3/10; js15 05:39 BP 154 / 72 (auto/); js15 05:41 Pulse 60 MON; Pulse Ox 94% ; js15 06:15 BP 165 / 78 (auto/); js15 06:17 Pulse 60 MON; Pulse Ox 92% ; js15 06:37 Temp 97.2(O); js15 00:09 Body Mass Index 25.11 (79.38 kg, 177.80 cm) mlc MDM: 00:55 IV Saline Lock ordered. mm11 00:55 morphine 4 mg IVP every 30 minutes; Document pain score/vitals after each dose (Hold if mm11 SBP < 90mmHg) x2 ordered. 00:55 Ondansetron 4 mg IVP once ordered. mm11 00:57 DVT US Lower Ordered. EDMS 00:57 Hip, (AP/Lat) Ordered. EDMS 00:58 Financial registration complete. pm4 03:47 ketorolac 15 mg IVP once ordered. mm11 03:47 Diazepam 5 mg IVP once ordered. mm11 04:42 Ambulate patient to assess pain tolerance ordered. mm11 05:15 BED REQUEST+ADM ordered. EDMS 05:23 morphine 4 mg IVP every 30 minutes; Document pain score/vitals after each dose (Hold if mm11 SBP < 90mmHg) x2 ordered. 05:26 COMPLETE BLOOD COUNT Ordered. EDMS 05:26 BASIC METABOLIC PROFILE Ordered. EDMS 05:29 Admission / Observation Status ordered. EDMS 06:05 CONSISTENT CARBOHYDRATES ordered. EDMS 06:06 PHYSICAL THERAPY EVAL & TREAT ordered. EDMS 07:45 ERYTHROCYTE SEDIMENTATION RATE Ordered. EDMS 07:45 C REACTIVE PROTEIN QUANTITATIV Ordered. EDMS 08:29 Fingerstick Blood Sugar Ordered. EDMS 08:41 NM-Bone Scan, 3 Phase Ordered. EDMS 12:39 Fingerstick Blood Sugar Ordered. EDMS 07/21 11:44 T-Sheet-- Draft Copy was scanned into [employer] and attached to record. gb Administered Medications: 07/20 01:10 Drug: morphine 4 mg [morphine 4 mg/mL intravenous cartridge (1 mL)] Route: IVP; Site: js15 left antecubital; 01:40 Follow up: Pain 3/10 Adult; Response: Pain is decreased js15 01:10 Drug: Ondansetron 4 mg [ondansetron HCl 2 mg/mL intravenous solution (2 mL)] Route: js15 IVP; Site: left antecubital; 02:38 Drug: morphine 4 mg [morphine 4 mg/mL intravenous cartridge (1 mL)] Route: IVP; Site: js15 left antecubital; 03:15 Follow up: Response: Pain is decreased js15 04:30 Drug: ketorolac 15 mg [ketorolac 30 mg/mL (1 mL) injection solution (0.5 mL)] Route: js15 IVP; Site: left antecubital; 04:30 Drug: Diazepam 5 mg [diazepam 5 mg/mL injection syringe (1 mL)] Route: IVP; Site: left js15 antecubital; 05:41 Drug: morphine 4 mg [morphine 4 mg/mL intravenous cartridge (1 mL)] Route: IVP; Site: [facility] left antecubital; 06:38 Follow up: Response: pt resting on stretcher with eyes closed; appears to be sleeping js15 Signatures: Dispatcher [employer] EDMS Erika Hong, RN RN kpj Arina Cespedes, Reg Reg gb Arthur Varela, DO mm11 Arthur Hughes, RN RN ml6 Cheryl AnnRN RN [facility] [place] Lydia Morgan RN RN js15 Tom Suh, Reg Reg pm4 The chart was reviewed and I authenticate all verbal orders and agree with the evaluation and treatment provided.Corrections: (The following items were deleted from the chart) 07:44 05:28 ERYTHROCYTE SEDIMENTATION RATE ordered. EDMS EDMS 07:44 05:28 C REACTIVE PROTEIN QUANTITATIV ordered. EDMS EDMS Attachments: 07/21 11:44 T-Sheet-- Draft Copy gb Chart Complete MTDD
--- NOTE | 2016-07-22 16:27 | EDDOCDS ---
Physician Documentation [facility] Name: Jose Rivera Age: 76 yrs Sex: Male : 1940 Arrival Date: 07/20/2016 Time: 00:02 Bed Admit Hold Private MD: Disposition: 07/20/16 05:19 Hospitalization ordered by Bennett Potts for Inpatient Admission. Preliminary diagnosis are Pain in right hip, Difficulty in walking, not elsewhere classified. - Bed requested for 4 [place]. - Status is Inpatient Admission. ml6 - Condition is Stable. - Problem is an ongoing problem. - Symptoms are unchanged. Historical: - Allergies: No known drug Allergies; - Home Meds: 1. metformin 500 mg Oral tab daily 2. aspirin 81 mg Oral tab 1 tab once daily - PMHx: COPD; Diabetes - NIDDM: controlled; - PSHx: left hand; Appendectomy; - Social history: Smoking status: Patient states former smoker of tobacco. No barriers to communication noted, The patient speaks fluent Turkmen. - Family history: Not pertinent. - : The pt / caregiver states he / she is not on anticoagulants. Home medication list is obtained from the patient. - Exposure Risk Screening:: None identified. Vital Signs: 07/20 00:09 BP 191 / 101; Pulse 66; Resp 20; Temp 97.0(O); Pulse Ox 100% on R/A; Weight 79.38 kg / mlc 175 lbs; Height 5 ft. 10 in. (177.80 cm); Pain 7/10; 01:40 Pain 3/10; js15 05:39 BP 154 / 72 (auto/); js15 05:41 Pulse 60 MON; Pulse Ox 94% ; js15 06:15 BP 165 / 78 (auto/); js15 06:17 Pulse 60 MON; Pulse Ox 92% ; js15 06:37 Temp 97.2(O); js15 00:09 Body Mass Index 25.11 (79.38 kg, 177.80 cm) mlc MDM: 00:55 IV Saline Lock ordered. mm11 00:55 morphine 4 mg IVP every 30 minutes; Document pain score/vitals after each dose (Hold if mm11 SBP < 90mmHg) x2 ordered. 00:55 Ondansetron 4 mg IVP once ordered. mm11 00:57 DVT US Lower Ordered. EDMS 00:57 Hip, (AP/Lat) Ordered. EDMS 00:58 Financial registration complete. pm4 03:47 ketorolac 15 mg IVP once ordered. mm11 03:47 Diazepam 5 mg IVP once ordered. mm11 04:42 Ambulate patient to assess pain tolerance ordered. mm11 05:15 BED REQUEST+ADM ordered. EDMS 05:23 morphine 4 mg IVP every 30 minutes; Document pain score/vitals after each dose (Hold if mm11 SBP < 90mmHg) x2 ordered. 05:26 COMPLETE BLOOD COUNT Ordered. EDMS 05:26 BASIC METABOLIC PROFILE Ordered. EDMS 05:29 Admission / Observation Status ordered. EDMS 06:05 CONSISTENT CARBOHYDRATES ordered. EDMS 06:06 PHYSICAL THERAPY EVAL & TREAT ordered. EDMS 07:45 ERYTHROCYTE SEDIMENTATION RATE Ordered. EDMS 07:45 C REACTIVE PROTEIN QUANTITATIV Ordered. EDMS 08:29 Fingerstick Blood Sugar Ordered. EDMS 08:41 NM-Bone Scan, 3 Phase Ordered. EDMS 12:39 Fingerstick Blood Sugar Ordered. EDMS 07/21 11:44 T-Sheet-- Draft Copy was scanned into [employer] and attached to record. gb Administered Medications: 07/20 01:10 Drug: morphine 4 mg [morphine 4 mg/mL intravenous cartridge (1 mL)] Route: IVP; Site: js15 left antecubital; 01:40 Follow up: Pain 3/10 Adult; Response: Pain is decreased js15 01:10 Drug: Ondansetron 4 mg [ondansetron HCl 2 mg/mL intravenous solution (2 mL)] Route: js15 IVP; Site: left antecubital; 02:38 Drug: morphine 4 mg [morphine 4 mg/mL intravenous cartridge (1 mL)] Route: IVP; Site: js15 left antecubital; 03:15 Follow up: Response: Pain is decreased js15 04:30 Drug: ketorolac 15 mg [ketorolac 30 mg/mL (1 mL) injection solution (0.5 mL)] Route: js15 IVP; Site: left antecubital; 04:30 Drug: Diazepam 5 mg [diazepam 5 mg/mL injection syringe (1 mL)] Route: IVP; Site: left js15 antecubital; 05:41 Drug: morphine 4 mg [morphine 4 mg/mL intravenous cartridge (1 mL)] Route: IVP; Site: [facility] left antecubital; 06:38 Follow up: Response: pt resting on stretcher with eyes closed; appears to be sleeping js15 Signatures: Dispatcher [employer] EDMS Erika Hong, RN RN kpj Arina Cespedes, Reg Reg gb Arthur Varela, DO mm11 Arthur Hughes, RN RN ml6 Cheryl AnnRN RN [facility] [place] Lydia Morgan RN RN js15 Tom Suh, Reg Reg pm4 The chart was reviewed and I authenticate all verbal orders and agree with the evaluation and treatment provided.Corrections: (The following items were deleted from the chart) 07:44 05:28 ERYTHROCYTE SEDIMENTATION RATE ordered. EDMS EDMS 07:44 05:28 C REACTIVE PROTEIN QUANTITATIV ordered. EDMS EDMS Attachments: 07/21 11:44 T-Sheet-- Draft Copy gb Chart Complete MTDD
--- NOTE | 2016-07-22 16:27 | EDDOCDS ---
Nurse's Notes [facility] Name: Jose Rivera Age: 76 yrs Sex: Male : 1940 Arrival Date: 07/20/2016 Time: 00:02 Bed Admit Hold Private MD: Diagnosis: Pain in right hip;Difficulty in walking, not elsewhere classified Presentation: 07/20 00:05 Presenting complaint: EMS states: right sided hip cause, pt thinks due to a pinched mlc nerve. pain starting Thursday, seen chiropractor . pt is unable to bear weight on hip. Adult Sepsis Screening: The patient does not have new or worsening altered mentation. Patient's respiratory rate is less than 22. Systolic blood pressure is greater than 100. Patient has a qSOFA score of 0- Negative Sepsis Screen. Suicide/Homicide risk assessment- the patient denies having any suicidal and/or homicidal ideations and does not present with any other emotional, behavioral or mental health complaints. 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 Transition of care: patient was not received from another setting of care. 00:05 Acuity: KELLY Level 3 mlc 00:05 Method Of Arrival: Ambulance mlc Triage Assessment: 00:05 General: pt states he moved a piece of wood and that is when pain started. mlc 00:09 General: Appears in no apparent distress, uncomfortable, Behavior is cooperative. Pain: mlc Location: right hip Pain currently is 7 out of 10 on a pain scale. The patient is triaged at the bedside. See Assessment in Nurses Notes section of ED record. Neurological: Level of Consciousness is awake, alert, obeys commands, Oriented to person, place, time. Respiratory: Airway is patent Respiratory effort is even, unlabored, Respiratory pattern is regular. Derm: Skin is pink, warm & dry. Musculoskeletal: Range of motion limited in right hip. Historical: - Allergies: No known drug Allergies; - Home Meds: 1. metformin 500 mg Oral tab daily 2. aspirin 81 mg Oral tab 1 tab once daily - PMHx: COPD; Diabetes - NIDDM: controlled; - PSHx: left hand; Appendectomy; - Social history: Smoking status: Patient states former smoker of tobacco. No barriers to communication noted, The patient speaks fluent Burmese. - Family history: Not pertinent. - : The pt / caregiver states he / she is not on anticoagulants. Home medication list is obtained from the patient. - Exposure Risk Screening:: None identified. Screenin:00 Screening information is obtained from the patient. Fall risk: At risk due to pain in js15 right hip. The following interventions are performed due to a positive Fall Risk Screen: side rails upx2, bed in low position, call light in reach, family at bedside. Assistance ADL's: requires no assistance with activities of daily living. Abuse/DV Screen: The patient / caregiver reports he/she is: not in a situation that causes fear, pain or injury. Nutritional screening: No deficits noted. Advance Directives: There is no active DNR order. home support is adequate. Assessment: 01:00 General: Appears in no apparent distress, uncomfortable, Behavior is appropriate for [facility] age, cooperative. Pain: Location: right hip Pain currently is 8 out of 10 on a pain scale. Neurological: Level of Consciousness is awake, alert, obeys commands, Oriented to person, place, time. Respiratory: Airway is patent Respiratory effort is even, unlabored, Respiratory pattern is regular, symmetrical. Derm: Skin is pink, warm & dry. 02:00 Reassessment: Patient appears in no apparent distress at this time. Pt resting on [facility] stretcher, respirations even and unlabored; skin pink, warm, dry, reports pain 3/10 in right hip. 03:00 Reassessment: Patient appears in no apparent distress at this time. Pt resting on [facility] stretcher with eyes closed; respirations even and unlabored; skin pink, warm, dry. 04:30 General: Appears in no apparent distress, comfortable, to be sleeping. Behavior is. js Respiratory: Airway is patent Respiratory effort is even, unlabored, Respiratory pattern is regular, symmetrical. Derm: Skin is pink, warm & dry. 05:30 Reassessment: Patient appears in no apparent distress at this time. Hospitalist at [facility] bedside, pt awake and alert, respirations even and unlabored; skin pink, warm, dry. 06:30 Reassessment: Patient appears in no apparent distress at this time. Pt appears to be [facility] sleeping upon entry to room; arouses easily to verbal stimuli; respirations even and unlabored; skin pink, warm, dry. Vital Signs: 00:09 BP 191 / 101; Pulse 66; Resp 20; Temp 97.0(O); Pulse Ox 100% on R/A; Weight 79.38 kg; [facility] [place] Height 5 ft. 10 in. (177.80 cm); Pain 7/10; 01:40 Pain 3/10; js15 05:39 BP 154 / 72 (auto/); js15 05:41 Pulse 60 MON; Pulse Ox 94% ; js15 06:15 BP 165 / 78 (auto/); js15 06:17 Pulse 60 MON; Pulse Ox 92% ; js15 06:37 Temp 97.2(O); js15 00:09 Body Mass Index 25.11 (79.38 kg, 177.80 cm) [facility] [place] Vitals: 00:09 Log In Time N/A - ambulance arrival. [facility] [place] ED Course: 00:03 Patient visited by Bob Galdamez, Computer Operations Analyst. ml3 00:03 Kristen Duncan,CAT is Primary Nurse. ml3 00:03 Shelley Simeon,CAT is Primary Nurse. mm11 00:03 Patient moved to Waiting ml3 00:03 Patient moved to 2 ml3 00:03 Patient moved to 13 mm11 00:07 Triage Initiated mlc 00:13 Patient visited by Cheryl Ann RN. mlc 00:46 Arthur Varela DO is Attending Physician. mm11 00:46 Patient visited by Arthur Varela DO. mm11 00:54 Patient visited by Arthur Varela DO. mm11 00:54 Primary Nurse role handed off by Shelley Simeon RN anat 01:00 The patient / caregiver is instructed regarding the plan of care and ED course. js15 01:02 Inserted saline lock: 18 gauge in left antecubital area The patient tolerated the js15 procedure well. 01:07 Patient moved to Ultrasound hgl 01:22 Patient moved to 13 hgl 01:36 Patient visited by Lydia Morgan RN. js15 02:28 DVT US Lower Returned. EDMS 02:37 Patient visited by Lydia Morgan,CAT. js15 03:45 Patient visited by Arthur Varela DO. mm11 04:54 Patient visited by Lydai Morgan,CAT. js15 05:18 Bennett Potts DO is Hospitalizing Provider. mm11 06:31 Patient moved to Admit Hold ml3 06:40 Patient moved to IJun 06:41 Patient moved to Admit Hold ml3 09:13 Hip, (AP/Lat) Returned. EDMS 11:44 Primary Nurse role handed off by Kristen Duncan RN kr3 07/21 11:44 T-Sheet-- Draft Copy was scanned into [employer] and attached to record. gb Administered Medications: 07/20 01:10 Drug: morphine 4 mg [morphine 4 mg/mL intravenous cartridge (1 mL)] Route: IVP; Site: js15 left antecubital; 01:40 Follow up: Pain 08/08 Adult; Response: Pain is decreased js15 01:10 Drug: Ondansetron 4 mg [ondansetron HCl 2 mg/mL intravenous solution (2 mL)] Route: js15 IVP; Site: left antecubital; 02:38 Drug: morphine 4 mg [morphine 4 mg/mL intravenous cartridge (1 mL)] Route: IVP; Site: js15 left antecubital; 03:15 Follow up: Response: Pain is decreased js15 04:30 Drug: ketorolac 15 mg [ketorolac 30 mg/mL (1 mL) injection solution (0.5 mL)] Route: js15 IVP; Site: left antecubital; 04:30 Drug: Diazepam 5 mg [diazepam 5 mg/mL injection syringe (1 mL)] Route: IVP; Site: left js15 antecubital; 05:41 Drug: morphine 4 mg [morphine 4 mg/mL intravenous cartridge (1 mL)] Route: IVP; Site: js15 left antecubital; 06:38 Follow up: Response: pt resting on stretcher with eyes closed; appears to be sleeping js15 Order Results: Lab Order: COMPLETE BLOOD COUNT; SPEC'M 07/20/16 08:01 Test: WHITE BLOOD COUNT; Value: 7.7; Range: 4.0-10.0; Units: K/mm3; Status: F Test: RED BLOOD COUNT; Value: 4.26; Range: 4.30-6.10; Abnormal: Below low normal; Units: M/mm3; Status: F Test: HEMOGLOBIN; Value: 14.1; Range: 14.0-18.0; Units: g/dl; Status: F Test: HEMATOCRIT; Value: 41.8; Range: 42.0-52.0; Abnormal: Below low normal; Units: %; Status: F Test: MEAN CORPUSCULAR VOLUME; Value: 98.1; Range: 80.0-96.0; Abnormal: Above high normal; Units: fl; Status: F Test: MEAN CORPUSCULAR HEMOGLOBIN; Value: 33.1; Range: 27.0-33.0; Abnormal: Above high normal; Units: pg; Status: F Test: MEAN CORPUSCULAR HGB CONC; Value: 33.7; Range: 32.0-36.5; Units: g/dl; Status: F Test: RED CELL DISTRIBUTION WIDTH; Value: 12.6; Range: 11.5-14.5; Units: %; Status: F Test: PLATELET COUNT, AUTOMATED; Value: 190; Range: 150-450; Units: k/mm3; Status: F Lab Order: BASIC METABOLIC PROFILE; [facility] 07/20/16 08:01 Test: GLUCOSE, FASTING; Value: 145; Range: 83-110; Abnormal: Above high normal; Units: MG/DL; Status: F Test: BLOOD UREA NITROGEN; Value: 18; Range: 7-18; Units: MG/DL; Status: F Test: CREATININE FOR GFR; Value: 0.97; Range: 0.70-1.30; Units: MG/DL; Status: F Test: GLOMERULAR FILTRATION RATE; Value: > 60.0; Range: >42; Status: F Test: SODIUM LEVEL; Value: 142; Range: 136-145; Units: MEQ/L; Status: F Test: POTASSIUM SERUM; Value: 4.1; Range: 3.5-5.1; Units: MEQ/L; Status: F Test: CHLORIDE LEVEL; Value: 105; Range: 98-107; Units: MEQ/L; Status: F Test: CARBON DIOXIDE LEVEL; Value: 31; Range: 21-32; Units: MEQ/L; Status: F Test: ANION GAP; Value: 6; Range: 8-16; Abnormal: Below low normal; Units: MEQ/L; Status: F Test: CALCIUM LEVEL; Value: 9.2; Range: 8.8-10.2; Units: MG/DL; Status: F Test Note: ; Units are mL/min/1.73 m2 Chronic Kidney Disease Staging per NKF: Stage I & II GFR >=60 Normal to Mildly Decreased Stage III GFR 30-59 Moderately Decreased Stage IV GFR 15-29 Severely Decreased Stage V GFR <15 Very Little GFR Left ESRD GFR <15 on SIGNS SALES REPRESENTATIVE Lab Order: ERYTHROCYTE SEDIMENTATION RATE; [facility]07/20/16 08:01 Test: ERYTHROCYTE SEDIMENTATION RATE; Value: 13; Range: 0-20; Units: mm/hr; Status: F Lab Order: C REACTIVE PROTEIN QUANTITATIV; [facility]07/20/16 08:01 Test: C REACTIVE PROTEIN QUANTITATIV; Value: < 0.30; Range: 0.00-0.30; Units: MG/DL; Status: F Lab Order: Fingerstick Blood Sugar; [facility]07/20/16 08:17 Test: BEDSIDE GLUCOSE; Value: 139; Range: 83-110; Abnormal: Above high normal; Units: MG/DL; Status: F Lab Order: Fingerstick Blood Sugar; [facility]07/20/16 12:31 Test: BEDSIDE GLUCOSE; Value: 110; Range: 83-110; Units: MG/DL; Status: F Radiology Order: Hip, (AP/Lat) Test: Hip, (AP/Lat) REASON FOR EXAMINATION: pain; Clinical: Pain; ; Technique: AP and frog-lateral views of the right hip.; ; Findings: Moderate arthritic degenerative changes. No acute fracture or; dislocation.; ; Impression:; ; Moderate degenerative changes. No fracture or dislocation.; ; ; Signed by; Cristi Diehl MD 07/20/2016 08:41 A; Radiology Order: DVT US Lower Test: DVT US Lower REASON FOR EXAMINATION: pain; ; CLINICAL HISTORY: Edema.; COMMENTS:; Real time sonography with duplex doppler of the right lower extremity was performed with attention to; the major deep venous structures.; Evaluation reveals the right common femoral, superficial femoral and popliteal veins to be completely; compressible without intraluminal thrombus. There is normal spontaneous phasic flow and augmentation; . The greater saphenous/common femoral vein junction is patent. No reflux was noted.; IMPRESSION:; No evidence of DVT in right lower extremity.; Thank you for your kind referral of this patient.; ; Outcome: 05:19 Decision to Hospitalize by Provider. mm11 15:26 Patient left the ED. ml6 Signatures: Dispatcher [employer] EDMS Rocio Escalona, RN RN Arina Mendoza, Reg Reg milla Galdamez, Bob, Computer Operations Analyst Unit ml3 Emily Castano,RN RN antwon3 Arthur Varela, DO DO mm11 Arthur Hughes, RN RN ml6 Geri Campos, OVERLOCK ELASTIC ATTACHER OVERLOCK ELASTIC ATTACHER anat Ly, Saman hgl Cheryl Ann,RN RN [facility] [place] Lydia Morgan,RN RN js15 Chart Complete MTDD
--- NOTE | 2016-07-22 18:41 | CR ---
DATE OF CONSULTATION: 07/20/2016 I was asked to see this patient in consultation to evaluate hip discomfort on July 20. HISTORY: This 76-year-old gentleman said he felt something pop in his hip when he was moving some fire wood and since then he has been having excruciating pain. The incident happened a couple of days before he was admitted. Complained of buttock pain on the right side. Next, felt the pain was excruciating, felt he could not edson on walking and declined the outpatient followup via the emergency room. He had hip x-rays on the right which were negative. He had a avascular ultrasound that was negative for deep venous thrombosis (DVT) well the emergency department (ED). Next, he was admitted to the hospitalist service for pain management. He indicates that prior to admission he saw chiropractor who failed to relieve his pain when he adjusted his hip. ALLERGIES NO KNOWN DRUG ALLERGIES. MEDICAL HISTORY: Includes [id number] diabetes and chronic obstructive pulmonary disease (COPD). PAST SURGICAL HISTORY: Includes hand surgery, eye surgery, appendectomy. SOCIAL HISTORY: He is a nonsmoker, occasionally drinks. REVIEW OF SYSTEMS: He is complained of right buttock pain, not complaining of back pain, not complaining of headache, dizziness or lightheadedness, not complaining of chest pain, not complaining of shortness of breath today, not complaining of stomach pain, not complaining of urinary problems, not complaining of numbness, tingling or focal weakness, not complaining of skin trouble today. Clinical exam he was alert and cooperative. Palpation around the right buttock produced discomfort. There is no fluctuance, edema or any other problem. Rotation of the hip reduced and buttock pain but no groin pain was reported. The leg lengths were equal. Extremity warm and well-perfused. IMPRESSION: Possible abductor mechanism sprain versus occult fracture. Possible referred pain from spinal issue. RECOMMENDATIONS: My recommendations included a bone scan to evaluate for potential occult fracture around the right hip or pelvic region. Progressive mobilization of the bone scan is negative for fracture. MTDD
--- NOTE | 2016-07-22 20:00 | REPUSA ---
MRI of the right hip without contrast Clinical history: injury, rule out avascular necrosis. Technique: Multiecho, Multiplanar MRI images of the right hip were obtained without administration of contrast. Comparison: None. Findings: The osseous structures demonstrate normal heterogeneous bone marrow signal. There is no are a of bone marrow edema. No fractures are identified. There is mild narrowing of the articular cartila ge in the right hip joint. The joint spaces mildly narrowed. There is a trace joint effusion. The sup erficial soft tissues are unremarkable. Impression: 1. No acute fracture or evidence of avascular necrosis. 2. Mild osteoarthritis of the right hip joint.
[2016-07-22] MEDS: ASPIRIN 81 MG ENTERIC TAB PO SCH (20:13)
[2016-07-22] MEDS: CETIRIZINE (ZyrTEC) 10 MG TAB PO SCH (20:13)
[2016-07-22] MEDS: VITAMIN D 1,000 INTERNATIONAL UNITS TABLET PO SCH (20:13)
[2016-07-22] MEDS: predniSONE 10 MG TAB PO SCH (20:13)
[2016-07-22] MEDS: MIRALAX *UNIT DOSE* 17GM PACKET PO SCH (20:14)
[2016-07-22] MEDS: **NOTE PATIENT COMMENT** MISC XX SCH (20:14)
--- NOTE | 2016-07-22 20:20 | REPUSA ---
MRI of the lumbar spine without contrast Clinical statement: Pain. Technique: Multiecho multiplanar MRI images of the lumbar spine were obtained without administration of contrast. No comparison is available. Findings: The lumbar vertebral bodies are in satisfactory position and alignment. No fractures or dis locations are demonstrated. Normal heterogeneous bone marrow signal is noted. No osseous tumors are s een. The intervertebral disc heights are mildly narrowed at all levels, with loss of signal within al l discs. The filum terminale and conus medullaris appear unremarkable. The spinal cord demonstrates n ormal signal and contour. The surrounding soft tissues are within normal limits. The T12/L1 disc level is unremarkable. At L1/L2, there is minimal disc bulging measuring 1 mm diameter. There is no evidence of disc herniat ion or central canal stenosis. The neural foramen are patent. At L2/L3, there is mild disc osteophyte complex and disc bulge, measuring approximately [address] There is no evidence of disc herniation or central canal stenosis. There is mild bilateral neura l foraminal narrowing. At L3/L4, there is a moderate disc osteophyte complex and disc bulge measuring 3 mm in diameter. A sm all central area of hyperintensity in the central posterior disc is consistent with a small annular t ear. There is no evidence of a disc bulge. Facet hypertrophic changes are seen bilaterally with hyper trophy of the ligamentum flavum bilaterally. This causes mild borderline central canal narrowing ronan uring 12 mm. There is moderate bilateral neural foraminal narrowing. At L4/L5, there is a right foraminal disc extrusion measuring 0.8 x 1.1 cm, extending 1.0 cm superior ly along the posterior aspect of the L4 vertebral body. There is a broad disc osteophyte complex and disc bulge appreciated, measuring 3 mm in diameter. This causes mild central canal stenosis measuring 11 mm in AP diameter. There is moderately severe narrowing of the left neural foramen. On the right, there is severe narrowing of the right neural foramen, with no compression not only of the exiting r ight L5 nerve root, what of the L4 nerve root from the upper disc level space. At L5/S1, there is a broad disc osteophyte complex and disc bulge, measuring 3 mm in diameter. There is no evidence of disc herniation. There is moderate central canal stenosis measuring 12 mm in AP regis meter. There is severe bilateral neural foraminal narrowing. Impression: 1. At L4/L5, large right foraminal disc extrusion extending superiorly along the posterior aspect of L4 along with a broad disc osteophyte complex and disc bulge. This disc extrusion compresses both the exiting right L4 and L5 nerve roots. 2. Mild to moderate central canal narrowing at L3/L4, L4/L5, and L5/S1 as described with varying degr ees of neural foraminal narrowing. 3. Minimal disc bulging at L1/L2 and L2/L3. Lynne, the floor nurse, was called regarding these findings at a 11 PM on 07/22/2016.
[2016-07-22 22:00] VITALS: BP 166/77
[2016-07-23 06:00] VITALS: BP 140/81
[2016-07-23 06:28] LABS: MEAN CORPUSCULAR HEMOGLOBIN 34.2 pg (27.0-33.0); MEAN CORPUSCULAR HGB CONC 34.8 g/dl (32.0-36.5); MEAN CORPUSCULAR VOLUME 98.3 fl (80.0-96.0); RED CELL DISTRIBUTION WIDTH 12.4 % (11.5-14.5); WHITE BLOOD COUNT 5.1 K/mm3 (4.0-10.0)
[2016-07-23 06:41] LABS: ANION GAP 7 MEQ/L (8-16); BLOOD UREA NITROGEN 19 MG/DL (7-18); CALCIUM LEVEL 8.6 MG/DL (8.8-10.2); CARBON DIOXIDE LEVEL 28 MEQ/L (21-32); CHLORIDE LEVEL 109 MEQ/L (98-107); CREATININE FOR GFR 0.87 MG/DL (0.70-1.30); GLOMERULAR FILTRATION RATE > 60.0 (>42); GLUCOSE, FASTING 133 MG/DL (83-110); SODIUM LEVEL 144 MEQ/L (136-145)
[2016-07-23] MEDS: ADVAIR DISKUS 250/50 INH PWD INH SCH (07:24)
[2016-07-23] MEDS: MIRALAX *UNIT DOSE* 17GM PACKET PO SCH (09:00)
[2016-07-23] MEDS: CARISOPRODOL 350 MG TAB PO SCH (09:47)
[2016-07-23] MEDS: guaiFENesin ER 600 MG TAB PO SCH (09:47)
[2016-07-23] MEDS: DOCUSATE SODIUM 100 MG CAP PO SCH (09:47)
[2016-07-23] MEDS: LIDOCAINE 5% (LIDODERM) PATCH TD SCH (09:47)
[2016-07-23] MEDS: GABAPENTIN 100 MG CAP PO SCH (09:47)
[2016-07-23] MEDS: HumaLOG INSULIN (NovoLOG) PER UNIT SC SCH (09:48)
[2016-07-23] MEDS ORDERED: PERCOCET PO (09:50)
[2016-07-23] MEDS ORDERED: NAPR250T2 PO (09:50)
[2016-07-23] MEDS ORDERED: COLA100C PO (09:50)
[2016-07-23] MEDS ORDERED: OXYC1TAB23 PO (10:48)
--- NOTE | 2016-07-23 11:25 | DS.PDOC ---
Discharge Summary General Date of Admission Jul 20, 2016 at 05:27 Date of Discharge 07/23/16 Attending Physician: OCTAVIO RAJPUT MD Discharge Summary Consults: Dr. Galicia (orthopedics) Discharge diagnosis: Right hip Secondary diagnosis: Constipation, gmo-lvzngyq-yistgqrgd type 2 diabetes mellitus, COPD, allergic rhinitis, vitamin D deficiency Hospital course: Patient was admitted on 07/20/16 with chief complaint of right-sided hip pain, inability to bear weight. Patient was admitted for pain control and physical therapy. Patient was seen by Dr. Galicia and occult fracture was ruled out. Patient gradually improved throughout his hospitalization. He had a lumbar spine MRI on 07/22/16 which showed L4/L5 disc bulge with compression of L4 and L5 nerve roots. Patient improved throughout his hospitalization and was cleared by physical therapy for discharge on 07/22/16. Progress note on date of discharge: Subjective: Patient is a 76-year-old male with right-sided hip a seen for hospitalist follow -up. Patient says that he is doing well and does not have any acute concerns. He feels as though he is ready to go home. Objective: Vitals: Temperature 97.5, pulse 63, respiratory rate 14, blood pressure 140/81, pulse ox 95% on room air Gen.: Patient awake, alert and oriented, verbal and able to answer questions appropriately. He does not appear to be in any acute distress Heart: The Morrill rhythm, normal S1-S2. No murmurs, rubs, clicks or gallops Lungs: Clear to auscultation bilaterally. No wheezes, rales or rhonchi Musculoskeletal: 5/5 strength present throughout lower extremities Assessment: Patient is a 76-year-old male who was admitted with right hip pain. His pain has significantly improved, he has been cleared by physical therapy and he can be discharged to home. Dr. Galicia reviewed the MRI lumbar spine findings and recommended PT, pain control, and f/u with him in the office in 2 weeks. If failed medical therapy and nerve blocks, then he will consider offering elective decompression of the disk bulge in the office. Disposition: Discharge patient to home Follow-up: With Dr. Moon on 07/29/16 at 8:[address] Galicia on 07/31/16 at 8:15 AM Activity: As tolerated Medications on discharge: Docusate 100 mg by mouth twice a day Naproxen 250 mg by mouth twice a day Oxycodone with acetaminophen 1 tablet every 6 hours as needed for pain Combivent 2 puffs every 4 hours when necessary for shortness of breath Aspirin 81 mg by mouth every afternoon Cetirizine 10 mg by mouth every PM Vitamin D 1000 units by mouth every afternoon Guaifenesin 600 mg by mouth twice a day Metformin 500 mg by mouth twice a day Prednisone 10 mg by mouth every afternoon Advair 250/50 one puff twice a day Cc: Dr. Galicia, Dr. Moon Time spent on discharge: Greater than 30 minutes Medications Scheduled Aspirin (Aspirin 81) 81 Mg Tab 81 MG PO QPM Cetirizine HCl (Zyrtec Allergy) 10 Mg Tab 10 MG PO QPM Cholecalciferol (Vitamin D) 1,000 Unit Tab 1,000 UNIT PO QPM Docusate Sodium (Colace) 100 Mg Cap 100 MG PO BID Guaifenesin (Guaifenesin ER) 600 Mg Tab 600 MG PO BID Metformin Hydrochloride (Metformin HCl ER) 500 Mg Tab 500 MG PO BID Prednisone (Prednisone) 10 Mg Tab 10 MG PO QPM Salmeterol/Fluticasone (Advair Diskus 250-50 Mcg/Dose) 14 Puff/Inhaler Aerp 1 PUFF INH BID Scheduled PRN Albuterol/Ipratropium (Combivent Respimat 20-100 Mcg/Act) 1 Aer Aer 2 PUFF INH Q4H PRN PRN SHORTNESS OF BREATH Naproxen (Naproxen) 250 Mg Tab 250 MG PO BIDP PRN PRN pain Oxycodone/Acetaminophen (Oxycodone/Acetaminophen 5-325 mg) 1 Tab Tab 1 TAB PO Q6HP PRN PRN pain Allergies Coded Allergies: No Known Allergies (Verified Allergy, Unknown, 06/16/04) VINCE LYON DO Jul 23, 2016 11:25 OCTAVIO RAJPUT MD Jul 27, 2016 14:52 Red Cell Distribution Width 12.4 FSBS Laboratory Tests Test 07/22/16 11:50 07/22/16 17:02 07/22/16 20:14 Range/Units Bedside Glucose (Misc Panel) 85 130 135 83-110 MG/DL Medications Scheduled Aspirin (Aspirin 81) 81 Mg Tab 81 MG PO QPM Cetirizine HCl (Zyrtec Allergy) 10 Mg Tab 10 MG PO QPM Cholecalciferol (Vitamin D) 1,000 Unit Tab 1,000 UNIT PO QPM Docusate Sodium (Colace) 100 Mg Cap 100 MG PO BID Guaifenesin (Guaifenesin ER) 600 Mg Tab 600 MG PO BID Metformin Hydrochloride (Metformin HCl ER) 500 Mg Tab 500 MG PO BID Prednisone (Prednisone) 10 Mg Tab 10 MG PO QPM Salmeterol/Fluticasone (Advair Diskus 250-50 Mcg/Dose) 14 Puff/Inhaler Aerp 1 PUFF INH BID Scheduled PRN Albuterol/Ipratropium (Combivent Respimat 20-100 Mcg/Act) 1 Aer Aer 2 PUFF INH Q4H PRN PRN SHORTNESS OF BREATH Naproxen (Naproxen) 250 Mg Tab 250 MG PO BIDP PRN PRN pain Oxycodone/Acetaminophen (Oxycodone/Acetaminophen 5-325 mg) 1 Tab Tab 1 TAB PO Q6HP PRN PRN pain Allergies Coded Allergies: No Known Allergies (Verified Allergy, Unknown, 06/16/04) VINCE LYON DO Jul 23, 2016 11:25
== END 2016-07-23 12:14 | disposition home or self-care (01) ==
LOC: M ED 00:02 → M ED INP 05:27 → M MSPAV 15:29
PROVIDERS: ADMIT Hospitalist; ATTEND Internal Medicine
DX: M25.551 Pain in right hip (principal); R26.89 Other abnormalities of gait and mobility; K59.00 Constipation, unspecified; E11.9 Type 2 diabetes mellitus without complications; J44.9 Chronic obstructive pulmonary disease, unspecified; J30.9 Allergic rhinitis, unspecified; E55.9 Vitamin D deficiency, unspecified; Z79.899 Other long term (current) drug therapy; Z79.82 Long term (current) use of aspirin; Z79.84 Long term (current) use of oral hypoglycemic drugs; Z79.52 Long term (current) use of systemic steroids
CPT/HCPCS: 36415; 72148; 73502; 73721; 78315; 80048; 85027; 85652; 86140; 93971; 94640; 94664; 96374; 96375; 96376; 97161; 97530; 99283; A9503; G0378; G8978; G8979; G8980; J1885; J2405; J3360

== ENCOUNTER 2016-07-28 07:27 | Outpatient (RCR) | payer MEDICARE, OTHER ==
[~2016-07-28 07:27] MED LIST changes: +COLA100C PO; +GUAI1TAB PO; +METF500T4 PO; +NAPR250T2 PO; +OXYC1TAB23 PO; +PERCOCET PO; +PRED10TA PO
== END 2016-07-29 ==
LOC: M PT 07:27
PROVIDERS: ATTEND Family Medicine
DX: Z51.89 Encounter for other specified aftercare (principal); R26.9 Unspecified abnormalities of gait and mobility
CPT/HCPCS: 97161; G8978; G8979

== ENCOUNTER → 2016-08-06 | Day surgery (SDC) | payer MEDICARE, OTHER ==
[~2016-08-06] VITALS: Ht 174 cm; Wt 79.4 kg
[~2016-08-06] MED LIST changes: +ACETAMINOPHEN 325 MG TAB PO PRN; +AcetaZOLAMIDE 500 MG ER CAP PO ONE; +BSS with VANC/TOB/EPI for EYE CASES IR ONE; +CYCLOPENTOLATE 2% OPHTH SOLN As Ordered ONE; +CYCLOPENTOLATE 2% OPHTH SOLN OD ONE; +HEALON DUET (HEALON 10MG/ML 0.55ML & HEALON ENDOCOAT 30MG/ML 0.85ML) As Ordered ONE; +KETOROLAC 0.5% OPHTH SOLN OD ONE; +LIDOCAINE 1% SDV 5 ML VIAL As Ordered ONE; +LIDOCAINE 4% INJ 5 ML AMP OD ONE; +LIDOCAINE 4% INJ 5 ML AMP OU ONE; +MIDAZOLAM INJ 2 MG/2 ML VIAL (J2250) As Ordered ONE; +MOXIFLOXACIN IN BSS 0.25MG/0.25ML INTRACAMERAL INJ (OR EYE ONLY)(J2280) As Ordered ONE; +OFLOXACIN 0.3 % (OCUFLOX) OPTH SOL 5ML As Ordered ONE; +OFLOXACIN 0.3 % (OCUFLOX) OPTH SOL 5ML OD ONE; +PHENYLEPHRINE 2.5% OPHTH SOL 2ML As Ordered ONE; +PHENYLEPHRINE 2.5% OPHTH SOL 2ML OD ONE; +POVIDONE-IODINE 5% OPHTH PREP SOL 30ML As Ordered ONE; +PROPARACAINE 0.5% OPHTH SOL 15ML OD PRN; +TRIAMCINOLONE PRES FR 40 MG/ML 1ML(TRIESENCE)(OR EYE ONLY)(J3300 PER 1MG) As Ordered ONE; +TRIMETHOBENZAMIDE 300 MG CAP PO PRN; +TROPICAMIDE 1% OPHTH SOLN 2 ML As Ordered ONE; +TROPICAMIDE 1% OPHTH SOLN 2 ML OD ONE; +fentaNYL 100 MCG/2 ML INJECTION (J3010) As Ordered ONE
[2016-08-06 13:00] VITALS: BP 153/73
== END | disposition home or self-care (01) ==
LOC: M SDC 09:33
PROVIDERS: ATTEND Ophthalmology
DX: H26.9 Unspecified cataract (principal); E11.9 Type 2 diabetes mellitus without complications; J44.9 Chronic obstructive pulmonary disease, unspecified; M19.90 Unspecified osteoarthritis, unspecified site; M54.9 Dorsalgia, unspecified; Z87.891 Personal history of nicotine dependence; Z79.899 Other long term (current) drug therapy; Z79.82 Long term (current) use of aspirin; Z79.84 Long term (current) use of oral hypoglycemic drugs
CPT/HCPCS: 66984; J2250; J2280; J3010; J3300; V2632

== ENCOUNTER 2016-08-21 07:53 | Outpatient (RCR) | payer MEDICARE, OTHER ==
[~2016-08-21 07:53] MED LIST changes: -ACETAMINOPHEN 325 MG TAB PO PRN; -AcetaZOLAMIDE 500 MG ER CAP PO ONE; -BSS with VANC/TOB/EPI for EYE CASES IR ONE; -CYCLOPENTOLATE 2% OPHTH SOLN As Ordered ONE; -CYCLOPENTOLATE 2% OPHTH SOLN OD ONE; -HEALON DUET (HEALON 10MG/ML 0.55ML & HEALON ENDOCOAT 30MG/ML 0.85ML) As Ordered ONE; -KETOROLAC 0.5% OPHTH SOLN OD ONE; -LIDOCAINE 1% SDV 5 ML VIAL As Ordered ONE; -LIDOCAINE 4% INJ 5 ML AMP OD ONE; -LIDOCAINE 4% INJ 5 ML AMP OU ONE; -MIDAZOLAM INJ 2 MG/2 ML VIAL (J2250) As Ordered ONE; -MOXIFLOXACIN IN BSS 0.25MG/0.25ML INTRACAMERAL INJ (OR EYE ONLY)(J2280) As Ordered ONE; -OFLOXACIN 0.3 % (OCUFLOX) OPTH SOL 5ML As Ordered ONE; -OFLOXACIN 0.3 % (OCUFLOX) OPTH SOL 5ML OD ONE; -PHENYLEPHRINE 2.5% OPHTH SOL 2ML As Ordered ONE; -PHENYLEPHRINE 2.5% OPHTH SOL 2ML OD ONE; -POVIDONE-IODINE 5% OPHTH PREP SOL 30ML As Ordered ONE; -PROPARACAINE 0.5% OPHTH SOL 15ML OD PRN; -TRIAMCINOLONE PRES FR 40 MG/ML 1ML(TRIESENCE)(OR EYE ONLY)(J3300 PER 1MG) As Ordered ONE; -TRIMETHOBENZAMIDE 300 MG CAP PO PRN; -TROPICAMIDE 1% OPHTH SOLN 2 ML As Ordered ONE; -TROPICAMIDE 1% OPHTH SOLN 2 ML OD ONE; -fentaNYL 100 MCG/2 ML INJECTION (J3010) As Ordered ONE
== END 2016-08-21 14:23 | disposition home or self-care (01) ==
LOC: M PT 07:53
PROVIDERS: ATTEND Family Medicine
DX: Z51.89 Encounter for other specified aftercare (principal); R26.9 Unspecified abnormalities of gait and mobility
CPT/HCPCS: 97110; G8979; G8980

== ENCOUNTER → 2016-10-28 | Outpatient (REF) | payer MEDICARE, OTHER ==
[~2016-10-28] MED LIST changes: -COLA100C PO; +COLA100C3 PO
== END ==
LOC: M LAB REF 14:06
PROVIDERS: ATTEND Family Medicine
DX: E11.9 Type 2 diabetes mellitus without complications (principal)

== ENCOUNTER → 2017-05-11 | Outpatient (REF) | payer MEDICARE, OTHER ==
[~2017-05-11] MED LIST changes: -COLA100C3 PO; +COLA100C5 PO; -METF500T PO; +METF500T13 PO; -MUCI600T34 PO; +MUCI600T37 PO; -NAPR250T2 PO; +NAPR250T4 PO; -PRED10TA PO; +PRED10TA2 PO
[2017-05-11 12:44] LABS: BASO % 0.6 % (0.0-1.0); EOS # 0.1 10^3/uL (0.0-0.50); EOS % 2.7 % (0.0-3.0); IMMATURE GRANULOCYTE % 0.4 % (0-0); LYMPH # 0.8 10^3/uL (1.5-4.5); LYMPH % 15.5 % (24.0-44.0); MONO # 0.4 10^3/uL (0.0-0.8); MONO % 8.2 % (0.0-5.0); NEUTROPHILS # 3.8 10^3/uL (1.8-7.7); NEUTROPHILS % 72.6 % (36.0-66.0); PLATELET COUNT, AUTOMATED 180 10^3/uL (150-450); RED CELL DISTRIBUTION WIDTH 12.5 % (11.5-14.5); WHITE BLOOD COUNT 5.2 10^3/uL (4.0-10.0)
[2017-05-11 13:19] LABS: ALBUMIN 4.1 GM/DL (3.2-5.2); ALBUMIN/GLOBULIN RATIO 1.64 (1.00-1.93); ALKALINE PHOSPHATASE 67 U/L (45-117); ALT/SGPT 43 U/L (12-78); ANION GAP 8 MEQ/L (8-16); AST/SGOT 35 U/L (7-37); BILIRUBIN,TOTAL 0.4 MG/DL (0.2-1.0); BLOOD UREA NITROGEN 19 MG/DL (7-18); CALCIUM LEVEL 8.8 MG/DL (8.8-10.2); CARBON DIOXIDE LEVEL 28 MEQ/L (21-32); CHLORIDE LEVEL 107 MEQ/L (98-107); CHOLESTEROL LEVEL 137 MG/DL (<200); CREATININE FOR GFR 0.84 MG/DL (0.70-1.30); GLOMERULAR FILTRATION RATE > 60.0 (>42); GLUCOSE, FASTING 118 MG/DL (83-110); POTASSIUM SERUM 4.2 MEQ/L (3.5-5.1); SODIUM LEVEL 143 MEQ/L (136-145); TOTAL PROTEIN 6.6 GM/DL (6.4-8.2); TRIGLYCERIDES LEVEL 45 MG/DL (<150)
== END ==
LOC: M LABDRAW1 11:53
PROVIDERS: ATTEND Family Medicine
DX: E11.9 Type 2 diabetes mellitus without complications (principal)

== ENCOUNTER → 2017-12-21 | Outpatient (CLI) | payer MEDICARE, OTHER | LOC: M WUC 09:40 | DX: J44.9 Chronic obstructive pulmonary disease, unspecified (principal); J84.9 Interstitial pulmonary disease, unspecified ==

== ENCOUNTER → 2017-12-21 | Outpatient (CLI) | payer MEDICARE, OTHER ==
[2017-12-21 12:48] LABS: BASO # 0.1 10^3/uL (0.0-0.2); EOS # 0.3 10^3/uL (0.0-0.50); EOS % 4.2 % (0.0-3.0); HEMATOCRIT 42.7 % (42.0-52.0); HEMOGLOBIN 14.1 g/dl (13.5-17.5); IMMATURE GRANULOCYTE % 0.2 % (0-3.0); LYMPH # 0.9 10^3/uL (1.5-4.5); LYMPH % 15.4 % (24.0-44.0); MEAN CORPUSCULAR HEMOGLOBIN 32.1 pg (27.0-33.0); MEAN CORPUSCULAR VOLUME 97.3 fl (80.0-96.0); MONO # 0.5 10^3/uL (0.0-0.8); MONO % 9.1 % (0.0-5.0); NEUTROPHILS # 4.1 10^3/uL (1.8-7.7); NEUTROPHILS % 70.1 % (36.0-66.0); PLATELET COUNT, AUTOMATED 196 10^3/uL (150-450); RED BLOOD COUNT 4.39 10^6/uL (4.30-6.10); RED CELL DISTRIBUTION WIDTH 12.4 % (11.5-14.5); WHITE BLOOD COUNT 5.9 10^3/uL (4.0-10.0)
[2017-12-21 13:04] LABS: ALBUMIN 3.8 GM/DL (3.2-5.2); ALBUMIN/GLOBULIN RATIO 1.31 (1.00-1.93); ALKALINE PHOSPHATASE 77 U/L (45-117); ALT/SGPT 61 U/L (12-78); ANION GAP 7 MEQ/L (8-16); AST/SGOT 48 U/L (7-37); BILIRUBIN,TOTAL 0.4 MG/DL (0.2-1.0); BLOOD UREA NITROGEN 19 MG/DL (7-18); CALCIUM LEVEL 8.9 MG/DL (8.8-10.2); CARBON DIOXIDE LEVEL 30 MEQ/L (21-32); CHLORIDE LEVEL 106 MEQ/L (98-107); CHOLESTEROL LEVEL 134 MG/DL (<200); CHOLESTEROL RISK RATIO 1.887 (<5); CREATININE FOR GFR 0.91 MG/DL (0.70-1.30); GLOMERULAR FILTRATION RATE > 60.0 (>42); GLUCOSE, FASTING 114 MG/DL (70-100); HDL CHOLESTEROL 71 MG/DL (>40); LDL CHOLESTEROL 54.6 MG/DL (<100); NON-HDL-C 63 MG/DL; POTASSIUM SERUM 4.2 MEQ/L (3.5-5.1); SODIUM LEVEL 143 MEQ/L (136-145); TOTAL PROTEIN 6.7 GM/DL (6.4-8.2); TRIGLYCERIDES LEVEL 42 MG/DL (<150)
[2017-12-21 13:21] LABS: CREATININE, URINE 84.2 MG/DL; MALB URINE SIEMENS 5.3 MG/L; MAU/CREAT RATIO 6.2 MCG/MG (0.0-30.0)
[2017-12-21 14:07] LABS: ESTIMATED AVERAGE GLUCOSE 134 MG/DL (60-110); HEMOGLOBIN A1c 6.3 %
== END ==
LOC: M WUC 09:36
DX: E11.9 Type 2 diabetes mellitus without complications (principal); J44.9 Chronic obstructive pulmonary disease, unspecified; J84.9 Interstitial pulmonary disease, unspecified
CPT/HCPCS: 80053

== ENCOUNTER → 2018-04-29 | Outpatient (REF) | payer MEDICARE, OTHER ==
[2018-04-29 12:50] LABS: BASO % 0.8 % (0.0-1.0); EOS # 0.2 10^3/uL (0.0-0.50); EOS % 4.1 % (0.0-3.0); HEMATOCRIT 43.8 % (42.0-52.0); HEMOGLOBIN 14.7 g/dl (13.5-17.5); LYMPH # 0.8 10^3/uL (1.5-4.5); MEAN CORPUSCULAR HEMOGLOBIN 32.7 pg (27.0-33.0); MEAN CORPUSCULAR HGB CONC 33.6 g/dl (32.0-36.5); MEAN CORPUSCULAR VOLUME 97.3 fl (80.0-96.0); MONO # 0.5 10^3/uL (0.0-0.8); MONO % 9.8 % (0.0-5.0); NEUTROPHILS # 3.3 10^3/uL (1.8-7.7); NEUTROPHILS % 68.3 % (36.0-66.0); PLATELET COUNT, AUTOMATED 183 10^3/uL (150-450); RED CELL DISTRIBUTION WIDTH 12.2 % (11.5-14.5); WHITE BLOOD COUNT 4.9 10^3/uL (4.0-10.0)
[2018-04-29 14:27] LABS: ALBUMIN 4.1 GM/DL (3.2-5.2); ALBUMIN/GLOBULIN RATIO 1.52 (1.00-1.93); ALKALINE PHOSPHATASE 75 U/L (45-117); ALT/SGPT 47 U/L (12-78); ANION GAP 7 MEQ/L (8-16); AST/SGOT 34 U/L (7-37); BILIRUBIN,TOTAL 0.6 MG/DL (0.2-1.0); BLOOD UREA NITROGEN 24 MG/DL (7-18); CALCIUM LEVEL 9.3 MG/DL (8.8-10.2); CARBON DIOXIDE LEVEL 30 MEQ/L (21-32); CHLORIDE LEVEL 102 MEQ/L (98-107); CHOLESTEROL LEVEL 136 MG/DL (<200); CREATININE FOR GFR 0.91 MG/DL (0.70-1.30); GLOMERULAR FILTRATION RATE > 60.0 (>42); GLUCOSE, FASTING 115 MG/DL (70-100); HDL CHOLESTEROL 68 MG/DL (>40); LDL CHOLESTEROL 58 MG/DL (<100); NON-HDL-C 68 MG/DL; POTASSIUM SERUM 4.1 MEQ/L (3.5-5.1); SODIUM LEVEL 139 MEQ/L (136-145); TOTAL PROTEIN 6.8 GM/DL (6.4-8.2); TRIGLYCERIDES LEVEL 49 MG/DL (<150)
[2018-04-29 15:17] LABS: MALB URINE SIEMENS < 5.0 MG/L
[2018-04-29 15:27] LABS: ESTIMATED AVERAGE GLUCOSE 128 MG/DL (60-110); HEMOGLOBIN A1c 6.1 %
== END ==
LOC: M LABDRAW1 11:47
DX: E11.9 Type 2 diabetes mellitus without complications (principal)
CPT/HCPCS: 80053

== ENCOUNTER 2018-05-13 08:18 | Day surgery (SDC) | payer MEDICARE, OTHER ==
[~2018-05-13] VITALS: Ht 177.8 cm; Wt 73.0 kg
[~2018-05-13 08:18] MED LIST changes: +NS 1,000 ML IV ONE; +ZYRT10CA5 PO; -ZYRT10TA2 PO
[2018-05-13] MEDS ORDERED: PROPOFOL 200 MG/20 ML VIAL As Ordered ONE ×2 (09:29→09:32)
[2018-05-13] MEDS ORDERED: LIDOCAINE 2% INJ 100 MG/5 ML SDV (FOR ANES.) As Ordered ONE (09:29)
--- NOTE | 2018-05-13 09:41 | ROOR ---
Patient Name: Jose Rivera Procedure Date: 05/13/2018 9:21 AM Date of : 1940 Age: 78 Room: [facility] Gender: Male Note Status: Finalized Procedure: Colonoscopy Indications: High risk colon cancer surveillance: Personal history of colonic polyps Providers: Domenico Brock Jr, MD Referring MD: Erika Moon MD Requesting Provider: Medicines: Propofol per Anesthesia Complications: No immediate complications. Procedure: Pre-Anesthesia Assessment: - Prior to the procedure, a History and Physical was performed, and patient medications and allergies were reviewed. The patient is competent. The risks and benefits of the procedure and the sedation options and risks were discussed with the patient. All questions were answered and informed consent was obtained. Patient identification and proposed procedure were verified by the physician and the nurse in the pre-procedure area and in the procedure room. Mental Status Examination: alert and oriented. Airway Examination: normal oropharyngeal airway and neck mobility. Respiratory Examination: clear to auscultation. CV Examination: normal. ASA Grade Assessment: II - A patient with mild systemic disease. After reviewing the risks and benefits, the patient was deemed in satisfactory condition to undergo the procedure. The anesthesia plan was to use moderate sedation / analgesia (conscious sedation). Immediately prior to administration of medications, the patient was re-assessed for adequacy to receive sedatives. The heart rate, respiratory rate, oxygen saturations, blood pressure, adequacy of pulmonary ventilation, and response to care were monitored throughout the procedure. The physical status of the patient was re-assessed after the procedure. The Colonoscope was introduced through the anus and advanced to the cecum, identified by appendiceal orifice and ileocecal valve. The colonoscopy was performed without difficulty. The patient tolerated the procedure well. The quality of the bowel preparation was fair. Findings: The rectum, descending colon, transverse colon, ascending colon, cecum and ileocecal valve appeared normal. Many small and large-mouthed diverticula were found in the sigmoid colon. A diminutive polyp was found in the recto-sigmoid colon. The polyp was removed with a jumbo cold forceps. Resection and retrieval were complete. Impression: - Preparation of the colon was fair. - The rectum, descending colon, transverse colon, ascending colon, cecum and ileocecal valve are normal. - Diverticulosis in the sigmoid colon. - One diminutive polyp at the recto-sigmoid colon, removed with a jumbo cold forceps. Resected and retrieved. Recommendation: - Discharge patient to home (ambulatory). - Repeat colonoscopy in 5 years for surveillance. Domenico Brock MD Domenico Brock Jr, MD 05/13/2018 9:40:56 AM This report has been signed electronically. Number of Addenda: 0 Note Initiated On: 05/13/2018 9:21 AM Estimated Blood Loss: Estimated blood loss: none.
[2018-05-13 10:00] VITALS: BP 123/70
== END 2018-05-13 10:13 | disposition home or self-care (01) ==
LOC: M OPP 08:18
PROVIDERS: ATTEND Surgery
DX: K57.30 Diverticulosis of large intestine without perforation or abscess without bleeding (principal); D12.7 Benign neoplasm of rectosigmoid junction; Z86.010 Personal history of colon polyps

== ENCOUNTER → 2019-03-02 | Outpatient (CLI) | payer MEDICARE, OTHER ==
[~2019-03-02] MED LIST changes: -ASPI1TAB PO; +ASPI81TA26 PO; +METF-791 PO; -METF500T4 PO; -NS 1,000 ML IV ONE
[2019-03-02 10:14] LABS: BASO % 0.6 % (0.0-1.0); EOS # 0.2 10^3/uL (0.0-0.5); EOS % 3.4 % (0.0-3.0); HEMATOCRIT 42.6 % (42.0-52.0); HEMOGLOBIN 13.9 g/dl (13.5-17.5); LYMPH # 0.9 10^3/uL (1.5-5.0); LYMPH % 17.3 % (24.0-44.0); MEAN CORPUSCULAR HEMOGLOBIN 32.6 pg (27.0-33.0); MEAN CORPUSCULAR HGB CONC 32.6 g/dl (32.0-36.5); MEAN CORPUSCULAR VOLUME 99.8 fl (80.0-96.0); MONO # 0.4 10^3/uL (0.0-0.8); NEUTROPHILS # 3.7 10^3/uL (1.5-8.5); NEUTROPHILS % 70.5 % (36.0-66.0); PLATELET COUNT, AUTOMATED 177 10^3/uL (150-450); RED BLOOD COUNT 4.27 10^6/uL (4.30-6.10); WHITE BLOOD COUNT 5.3 10^3/uL (4.0-10.0)
[2019-03-02 10:40] LABS: HEMOGLOBIN A1c 5.7 %
[2019-03-02 10:46] LABS: ALT/SGPT 40 U/L (12-78); BILIRUBIN,TOTAL 0.6 MG/DL (0.2-1.0); BLOOD UREA NITROGEN 23 MG/DL (7-18); CALCIUM LEVEL 9.4 MG/DL (8.8-10.2); CARBON DIOXIDE LEVEL 30 MEQ/L (21-32); CHLORIDE LEVEL 104 MEQ/L (98-107); CHOLESTEROL LEVEL 152 MG/DL (<200); CREATININE FOR GFR 0.95 MG/DL (0.70-1.30); GLOMERULAR FILTRATION RATE > 60.0 (>42); GLUCOSE, FASTING 103 MG/DL (70-100); HDL CHOLESTEROL 71 MG/DL (>40); LDL CHOLESTEROL 70 MG/DL (<100); NON-HDL-C 81 MG/DL; POTASSIUM SERUM 4.1 MEQ/L (3.5-5.1); SODIUM LEVEL 141 MEQ/L (136-145); TOTAL PROTEIN 6.6 GM/DL (6.4-8.2); TRIGLYCERIDES LEVEL 54 MG/DL (<150)
[2019-03-02 10:51] LABS: MAU/CREAT RATIO 8.3 MCG/MG (0.0-30.0)
== END ==
LOC: M WUC 08:27
PROVIDERS: ATTEND Family Medicine
DX: E11.9 Type 2 diabetes mellitus without complications (principal)

== ENCOUNTER → 2019-05-12 | Outpatient (CLI) | payer MEDICARE, OTHER ==
--- NOTE | 2019-05-12 12:11 | REP ---
RIGHT SHOULDER: Three views. HISTORY: Pain. FINDINGS: The right glenohumeral and acromioclavicular joints are normally aligned. There is a small bone island in the humeral head. There is AC joint hypertrophy and spur formation. Mild inferior glenoid spurring is seen. Periarticular soft tissues are unremarkable. 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 Electronically Signed by Otf Christensen MD 05/12/2019 01:10 P
== END ==
LOC: M WUC 09:43
PROVIDERS: ATTEND Physician Assistant
DX: M25.511 Pain in right shoulder (principal)

== ENCOUNTER → 2019-10-10 | Outpatient (REF) | payer MEDICARE, OTHER ==
[~2019-10-10] MED LIST changes: -METF-791 PO; +METF-838 PO
[2019-10-10 13:52] LABS: BASO % 0.6 % (0.0-1.0); EOS # 0.1 10^3/uL (0.0-0.5); HEMATOCRIT 42.1 % (42.0-52.0); HEMOGLOBIN 13.7 g/dl (13.5-17.5); LYMPH # 0.8 10^3/uL (1.5-5.0); LYMPH % 15.8 % (24.0-44.0); MEAN CORPUSCULAR HEMOGLOBIN 32.5 pg (27.0-33.0); MEAN CORPUSCULAR HGB CONC 32.5 g/dl (32.0-36.5); MEAN CORPUSCULAR VOLUME 99.8 fl (80.0-96.0); MONO # 0.4 10^3/uL (0.0-0.8); MONO % 7.9 % (0.0-5.0); NEUTROPHILS # 3.7 10^3/uL (1.5-8.5); NEUTROPHILS % 73.5 % (36.0-66.0); PLATELET COUNT, AUTOMATED 217 10^3/uL (150-450); RED BLOOD COUNT 4.22 10^6/uL (4.30-6.10); WHITE BLOOD COUNT 5.1 10^3/uL (4.0-10.0)
[2019-10-10 14:08] LABS: ALBUMIN 4.1 GM/DL (3.2-5.2); ALT/SGPT 33 U/L (12-78); BILIRUBIN,TOTAL 0.5 MG/DL (0.2-1.0); BLOOD UREA NITROGEN 20 MG/DL (7-18); CALCIUM LEVEL 9.8 MG/DL (8.8-10.2); CARBON DIOXIDE LEVEL 31 MEQ/L (21-32); CHLORIDE LEVEL 106 MEQ/L (98-107); CHOLESTEROL LEVEL 152 MG/DL (<200); CHOLESTEROL RISK RATIO 2.054 (<5); CREATININE FOR GFR 0.82 MG/DL (0.70-1.30); GLOMERULAR FILTRATION RATE > 60.0 (>42); GLUCOSE, FASTING 104 MG/DL (70-100); HDL CHOLESTEROL 74 MG/DL (>40); LDL CHOLESTEROL 66 MG/DL (<100); NON-HDL-C 78 MG/DL; POTASSIUM SERUM 4.3 MEQ/L (3.5-5.1); SODIUM LEVEL 143 MEQ/L (136-145); TOTAL PROTEIN 7.1 GM/DL (6.4-8.2); TRIGLYCERIDES LEVEL 59 MG/DL (<150)
[2019-10-10 14:24] LABS: CREATININE, URINE 60.8 MG/DL; MALB URINE SIEMENS < 5.0 MG/L; MAU/CREAT RATIO 8.2 MCG/MG (0.0-30.0)
[2019-10-10 15:00] LABS: HEMOGLOBIN A1c 6.1 %
== END ==
LOC: M PLALAB 09:30
PROVIDERS: ATTEND Physician Assistant
DX: J44.9 Chronic obstructive pulmonary disease, unspecified (principal); E11.9 Type 2 diabetes mellitus without complications; E55.9 Vitamin D deficiency, unspecified; Z13.220 Encounter for screening for lipoid disorders

== ENCOUNTER → 2019-10-10 | Outpatient (CLI) | payer MEDICARE, OTHER ==
--- NOTE | 2019-10-10 10:23 | REPPI ---
REASON: History of COPD. COMPARISON: 12/21/2017 FINDINGS: The superior mediastinal structures are midline. The cardiac silhouette is unremarkable in size, shape, and position. The diaphragmatic surfaces of the lungs are regular, and the costophrenic angles are clear. The pulmonary rodriguez are clear. The imaged osseous structures are intact. Note is again made of mild stable-appearing biapical pleuroparenchymal scarring. IMPRESSION: There is no acute cardiopulmonary disease. Electronically Signed by Manuel Ferrara DO 10/10/2019 10:33 A
== END ==
LOC: M PLAIMG 09:31
PROVIDERS: ATTEND Internal Medicine Pulmonary Disease
DX: J44.9 Chronic obstructive pulmonary disease, unspecified (principal); E11.9 Type 2 diabetes mellitus without complications; E55.9 Vitamin D deficiency, unspecified; Z13.220 Encounter for screening for lipoid disorders

== ENCOUNTER → 2020-05-15 | Outpatient (REF) | payer MEDICARE, OTHER ==
[2020-05-15 14:07] LABS: BASO % 0.4 % (0.0-1.0); EOS # 0.1 10^3/uL (0.0-0.5); HEMATOCRIT 46.1 % (42.0-52.0); HEMOGLOBIN 14.8 g/dl (13.5-17.5); LYMPH # 0.8 10^3/uL (1.5-5.0); LYMPH % 14.7 % (24.0-44.0); MEAN CORPUSCULAR HGB CONC 32.1 g/dl (32.0-36.5); MEAN CORPUSCULAR VOLUME 99.6 fl (80.0-96.0); MONO # 0.4 10^3/uL (0.0-0.8); MONO % 7.6 % (0.0-5.0); NEUTROPHILS # 4.1 10^3/uL (1.5-8.5); NEUTROPHILS % 75.1 % (36.0-66.0); PLATELET COUNT, AUTOMATED 198 10^3/uL (150-450); RED BLOOD COUNT 4.63 10^6/uL (4.30-6.10); WHITE BLOOD COUNT 5.5 10^3/uL (4.0-10.0)
[2020-05-15 14:12] LABS: BLOOD UREA NITROGEN 17 MG/DL (7-18); CALCIUM LEVEL 9.2 MG/DL (8.8-10.2); CARBON DIOXIDE LEVEL 32 MEQ/L (21-32); CHLORIDE LEVEL 104 MEQ/L (98-107); CREATININE FOR GFR 0.96 MG/DL (0.70-1.30); GLOMERULAR FILTRATION RATE > 60.0 (>35); GLUCOSE, FASTING 127 MG/DL (70-100); POTASSIUM SERUM 4.2 MEQ/L (3.5-5.1); SODIUM LEVEL 141 MEQ/L (136-145)
== END ==
LOC: M PLALAB 09:34
PROVIDERS: ATTEND Physician Assistant
DX: J44.9 Chronic obstructive pulmonary disease, unspecified (principal); E11.9 Type 2 diabetes mellitus without complications
CPT/HCPCS: 36415; 80048; 83036; 85025; G0463

== ENCOUNTER → 2020-10-22 | Outpatient (REF) | payer MEDICARE, OTHER ==
[~2020-10-22] MED LIST changes: +NAPR-849 PO; -NAPR250T4 PO
[2020-10-22 11:43] LABS: ALBUMIN 3.9 GM/DL (3.2-5.2); ALT/SGPT 47 U/L (12-78); BILIRUBIN,TOTAL 0.4 MG/DL (0.2-1.0); BLOOD UREA NITROGEN 16 MG/DL (7-18); CALCIUM LEVEL 9.4 MG/DL (8.8-10.2); CARBON DIOXIDE LEVEL 31 MEQ/L (21-32); CHLORIDE LEVEL 108 MEQ/L (98-107); CHOLESTEROL LEVEL 160 MG/DL (<200); CHOLESTEROL RISK RATIO 2.025 (<5); CREATININE FOR GFR 0.79 MG/DL (0.70-1.30); GLOMERULAR FILTRATION RATE > 60.0 (>35); GLUCOSE, FASTING 121 MG/DL (70-100); HDL CHOLESTEROL 79 MG/DL (>40); LDL CHOLESTEROL 71 MG/DL (<100); NON-HDL-C 81 MG/DL; POTASSIUM SERUM 4.3 MEQ/L (3.5-5.1); SODIUM LEVEL 141 MEQ/L (136-145); TOTAL PROTEIN 6.4 GM/DL (6.4-8.2); TRIGLYCERIDES LEVEL 50 MG/DL (<150)
[2020-10-22 11:49] LABS: CREATININE, URINE 25.5 MG/DL; MALB URINE SIEMENS < 5.0 MG/L; MAU/CREAT RATIO 19.6 MCG/MG (0.0-30.0)
[2020-10-22 12:12] LABS: HEMOGLOBIN A1c 5.5 %
== END ==
LOC: M SFHCPLAZ 09:49
PROVIDERS: ATTEND Physician Assistant
DX: E11.9 Type 2 diabetes mellitus without complications (principal)

== ENCOUNTER → 2021-12-23 | Outpatient (CLI) | payer MEDICARE, OTHER ==
[2021-12-23 10:17] LABS: BASO # 0.1 10^3/uL (0.0-0.2); BASO % 0.8 % (0.0-1.0); EOS # 0.1 10^3/uL (0.0-0.5); EOS % 1.6 % (0.0-3.0); HEMATOCRIT 41.9 % (42.0-52.0); HEMOGLOBIN 13.7 g/dl (13.5-17.5); LYMPH # 0.7 10^3/uL (1.5-5.0); LYMPH % 11.3 % (24.0-44.0); MEAN CORPUSCULAR HEMOGLOBIN 32.8 pg (27.0-33.0); MEAN CORPUSCULAR HGB CONC 32.7 g/dl (32.0-36.5); MEAN CORPUSCULAR VOLUME 100.2 fl (80.0-96.0); MONO # 0.4 10^3/uL (0.0-0.8); MONO % 6.6 % (2.0-8.0); NEUTROPHILS # 5.1 10^3/uL (1.5-8.5); NEUTROPHILS % 79.4 % (36.0-66.0); PLATELET COUNT, AUTOMATED 228 10^3/uL (150-450); RED BLOOD COUNT 4.18 10^6/uL (4.30-6.10); WHITE BLOOD COUNT 6.4 10^3/uL (4.0-10.0)
[2021-12-23 10:47] LABS: HEMOGLOBIN A1c 5.9 %
[2021-12-23 10:54] LABS: ALBUMIN 3.8 GM/DL (3.2-5.2); ALT/SGPT 43 U/L (12-78); BILIRUBIN,TOTAL 0.6 MG/DL (0.2-1.0); BLOOD UREA NITROGEN 15 MG/DL (7-18); CALCIUM LEVEL 9.4 MG/DL (8.8-10.2); CARBON DIOXIDE LEVEL 29 MEQ/L (21-32); CHLORIDE LEVEL 107 MEQ/L (98-107); CREATININE FOR GFR 0.85 MG/DL (0.70-1.30); FREE T4 0.89 NG/DL (0.76-1.46); GLOMERULAR FILTRATION RATE > 60.0 (>35); GLUCOSE, FASTING 102 MG/DL (70-100); POTASSIUM SERUM 4.2 MEQ/L (3.5-5.1); SODIUM LEVEL 143 MEQ/L (136-145); TOTAL PROTEIN 6.4 GM/DL (6.4-8.2)
[2021-12-23 11:44] LABS: TOTAL 25(OH) VITAMIN D 25.1 NG/ML (30.0-100.0); VITAMIN B12 LEVEL 310 PG/ML (247-911)
== END ==
LOC: M WUC 08:19
PROVIDERS: ATTEND Physician Assistant
DX: Z12.5 Encounter for screening for malignant neoplasm of prostate (principal); J44.9 Chronic obstructive pulmonary disease, unspecified; E11.9 Type 2 diabetes mellitus without complications; E55.9 Vitamin D deficiency, unspecified
CPT/HCPCS: 36415; 80053; 82306; 82607; 83036; 84439; 84443; 85025; G0103

== ENCOUNTER → 2021-12-31 | Outpatient (REF) | payer MEDICARE, OTHER | LOC: M WUC 16:24 | PROVIDERS: ATTEND Physician Assistant | DX: R97.20 Elevated prostate specific antigen [PSA] (principal) ==

== ENCOUNTER → 2022-01-07 | Outpatient (CLI) | payer MEDICARE, OTHER | LOC: M WUC 09:14 | PROVIDERS: ATTEND Student in an Organized Health Care Education/Training Program | DX: M25.551 Pain in right hip (principal) ==

== ENCOUNTER → 2022-01-31 | Outpatient (REF) | payer MEDICARE, OTHER | LOC: M SMT 12:56 | PROVIDERS: ATTEND Urology | DX: R97.20 Elevated prostate specific antigen [PSA] (principal) ==

== ENCOUNTER → 2022-03-18 | Outpatient (REF) | payer MEDICARE, OTHER ==
[2022-03-18 18:28] LABS: BLOOD UREA NITROGEN 22 MG/DL (7-18); CALCIUM LEVEL 9.5 MG/DL (8.8-10.2); CARBON DIOXIDE LEVEL 28 MEQ/L (21-32); CHLORIDE LEVEL 104 MEQ/L (98-107); CREATININE FOR GFR 0.88 MG/DL (0.70-1.30); GLOMERULAR FILTRATION RATE > 60.0 (>35); GLUCOSE, FASTING 96 MG/DL (70-100); POTASSIUM SERUM 4.1 MEQ/L (3.5-5.1); SODIUM LEVEL 140 MEQ/L (136-145)
== END ==
LOC: M LABWUC 16:38
PROVIDERS: ATTEND Urology
DX: C61 Malignant neoplasm of prostate (principal)

== ENCOUNTER → 2022-03-20 | Outpatient (CLI) | payer MEDICARE, OTHER ==
[~2022-03-20] MED LIST changes: +ISOVUE-370 76% 100ML VIAL As Ordered ONE
== END ==
LOC: M RAD 07:31
PROVIDERS: ATTEND Urology
DX: C61 Malignant neoplasm of prostate (principal)
CPT/HCPCS: 74177; 78306; A9503; Q9967

== ENCOUNTER → 2022-05-12 | Outpatient (CLI) | payer MEDICARE, OTHER ==
[~2022-05-12] MED LIST changes: -ISOVUE-370 76% 100ML VIAL As Ordered ONE
[2022-05-12 11:31] LABS: BASO % 0.7 % (0.0-1.0); EOS # 0.1 10^3/uL (0.0-0.5); EOS % 2.9 % (0.0-3.0); HEMATOCRIT 41.5 % (42.0-52.0); LYMPH # 0.6 10^3/uL (1.5-5.0); LYMPH % 15.3 % (24.0-44.0); MEAN CORPUSCULAR HEMOGLOBIN 31.3 pg (27.0-33.0); MEAN CORPUSCULAR HGB CONC 31.3 g/dl (32.0-36.5); MONO # 0.4 10^3/uL (0.0-0.8); MONO % 9.1 % (2.0-8.0); NEUTROPHILS % 71.8 % (36.0-66.0); PLATELET COUNT, AUTOMATED 179 10^3/uL (150-450); RED BLOOD COUNT 4.15 10^6/uL (4.30-6.10); WHITE BLOOD COUNT 4.2 10^3/uL (4.0-10.0)
[2022-05-12 12:04] LABS: BLOOD UREA NITROGEN 18 MG/DL (9-23); CALCIUM LEVEL 9.4 MG/DL (8.3-10.6); CARBON DIOXIDE LEVEL 30 MMOL/L (20-31); CHLORIDE LEVEL 103 MMOL/L (98-107); CREATININE FOR GFR 0.74 MG/DL (0.70-1.30); GLOMERULAR FILTRATION RATE > 60.0 (>35); GLUCOSE, FASTING 116 MG/DL (74-106); POTASSIUM SERUM 4.3 MMOL/L (3.5-5.1); SODIUM LEVEL 141 MMOL/L (136-145); THYROID STIMULATING HORMONE 5.089 uIU/ML (0.55-4.78)
== END ==
LOC: M WUC 08:38
PROVIDERS: ATTEND Physician Assistant
DX: R60.0 Localized edema (principal)

== ENCOUNTER → 2022-05-19 | Outpatient (CLI) | payer MEDICARE, OTHER ==
[~2022-05-19] MED LIST changes: +ISOVUE-300 61% 50ML VIAL As Ordered ONE; +LIDOCAINE 1% MDV 20ML VIAL As Ordered ONE; +TRIAMCINOLONE ACETONIDE SUSP 40MG/ML 1ML VIAL As Ordered ONE
== END ==
LOC: M RAD 15:07
PROVIDERS: ATTEND Orthopaedic Surgery
DX: M16.11 Unilateral primary osteoarthritis, right hip (principal)
CPT/HCPCS: 20610; 76000; J3301; Q9967

== ENCOUNTER → 2022-06-06 | Outpatient (CLI) | payer MEDICARE, OTHER ==
[~2022-06-06] MED LIST changes: -ISOVUE-300 61% 50ML VIAL As Ordered ONE; +ISOVUE-370 76% 100ML VIAL As Ordered ONE; -LIDOCAINE 1% MDV 20ML VIAL As Ordered ONE; -TRIAMCINOLONE ACETONIDE SUSP 40MG/ML 1ML VIAL As Ordered ONE
== END ==
LOC: M RAD 15:57
PROVIDERS: ATTEND Physician Assistant
DX: R93.89 Abnormal findings on diagnostic imaging of other specified body structures (principal); C61 Malignant neoplasm of prostate; J44.9 Chronic obstructive pulmonary disease, unspecified
CPT/HCPCS: 71260; Q9967

== ENCOUNTER → 2022-06-10 | Outpatient (REF) | payer MEDICARE, OTHER ==
[~2022-06-10] MED LIST changes: -ISOVUE-370 76% 100ML VIAL As Ordered ONE
== END ==
LOC: M LABWUC 09:18
PROVIDERS: ATTEND Urology
DX: C61 Malignant neoplasm of prostate (principal)

== ENCOUNTER → 2022-07-22 | Outpatient (CLI) | payer MEDICARE, OTHER ==
[2022-07-22 10:46] LABS: HEMOGLOBIN A1c 5.9 % (4.0-6.0)
== END ==
LOC: M WUC 08:25
PROVIDERS: ATTEND Physician Assistant
DX: R79.89 Other specified abnormal findings of blood chemistry (principal); E11.8 Type 2 diabetes mellitus with unspecified complications

== ENCOUNTER → 2022-08-12 | Outpatient (CLI) | payer MEDICARE, OTHER | LOC: M WUC 10:00 | PROVIDERS: ATTEND Urology | DX: C61 Malignant neoplasm of prostate (principal) ==

== ENCOUNTER → 2022-12-31 | Outpatient (REF) | payer MEDICARE, OTHER ==
[2022-12-31 15:47] LABS: BLOOD UREA NITROGEN 22 MG/DL (9-23); CALCIUM LEVEL 9.1 MG/DL (8.3-10.6); CARBON DIOXIDE LEVEL 27 MMOL/L (20-31); CHLORIDE LEVEL 107 MMOL/L (98-107); CHOLESTEROL LEVEL 161 MG/DL (<200); CHOLESTEROL RISK RATIO 1.85 (<5); CREATININE FOR GFR 0.68 MG/DL (0.70-1.30); GLOMERULAR FILTRATION RATE > 60.0 (>35); GLUCOSE, FASTING 133 MG/DL (74-106); HDL CHOLESTEROL 86.6 MG/DL (>40); LDL CHOLESTEROL 57.4 MG/DL (<100); NON-HDL-C 74.4 MG/DL; POTASSIUM SERUM 4.1 MMOL/L (3.5-5.1); SODIUM LEVEL 142 MMOL/L (136-145); TRIGLYCERIDES LEVEL 85 MG/DL (<150)
[2022-12-31 16:21] LABS: HEMOGLOBIN A1c 5.9 % (4.0-6.0)
== END ==
LOC: M SFHCADAM 11:04
PROVIDERS: ATTEND Physician Assistant
DX: E11.8 Type 2 diabetes mellitus with unspecified complications (principal)

== ENCOUNTER → 2023-01-14 | Outpatient (CLI) | payer MEDICARE, OTHER ==
[~2023-01-14] MED LIST changes: +ISOVUE-370 76% 100ML VIAL As Ordered ONE
== END ==
LOC: M RAD 08:44
PROVIDERS: ATTEND Physician Assistant
DX: J44.9 Chronic obstructive pulmonary disease, unspecified (principal)
CPT/HCPCS: 71260; Q9967

== ENCOUNTER → 2023-02-20 | Outpatient (CLI) | payer MEDICARE, OTHER ==
[~2023-02-20] MED LIST changes: -ISOVUE-370 76% 100ML VIAL As Ordered ONE
== END ==
LOC: M WUC 09:17
PROVIDERS: ATTEND Urology
DX: C61 Malignant neoplasm of prostate (principal)

== ENCOUNTER → 2023-06-09 | Outpatient (CLI) | payer MEDICARE, OTHER ==
[~2023-06-09] MED LIST changes: +ISOVUE-300 61% 100ML VIAL As Ordered ONE; +LIDOCAINE 1% MDV 20ML VIAL As Ordered ONE; +TRIAMCINOLONE ACETONIDE SUSP 40MG/ML 1ML VIAL As Ordered ONE
== END ==
LOC: M RAD 13:13
PROVIDERS: ATTEND Orthopaedic Surgery
DX: M19.90 Unspecified osteoarthritis, unspecified site (principal)
CPT/HCPCS: 20610; 77002; J3301; Q9967

== ENCOUNTER → 2023-07-13 | Outpatient (REF) | payer MEDICARE, OTHER ==
[~2023-07-13] MED LIST changes: -ISOVUE-300 61% 100ML VIAL As Ordered ONE; -LIDOCAINE 1% MDV 20ML VIAL As Ordered ONE; -TRIAMCINOLONE ACETONIDE SUSP 40MG/ML 1ML VIAL As Ordered ONE
== END ==
LOC: M LABWUC 12:11
PROVIDERS: ATTEND Urology
DX: C61 Malignant neoplasm of prostate (principal)

== ENCOUNTER 2023-07-23 10:36 | Day surgery (SDC) | payer MEDICARE, OTHER ==
[~2023-07-23] VITALS: Ht 175.3 cm; Wt 73.5 kg
[~2023-07-23 10:36] MED LIST changes: +ELIGARD; +FLUT1BLS2 INH; +MUCI600T31 PO; +SPIR12.9 INH; +VITA100093 PO
[2023-07-23] MEDS: NS 1,000 ML IV ONE (10:53)
[2023-07-23] MEDS ORDERED: propofoL 200 MG/20 ML VIAL As Ordered ONE (11:20)
[2023-07-23] MEDS ORDERED: LIDOCAINE 2% 100MG/5ML SDV (FOR ANES.) As Ordered ONE (11:20)
[2023-07-23 11:53] VITALS: TEMP 96.7
[2023-07-23 12:08] VITALS: BP 117/58; O2SAT 97
== END 2023-07-23 12:14 | disposition home or self-care (01) ==
LOC: M OPP 10:36
PROVIDERS: ATTEND Surgery
DX: Z86.010 Personal history of colon polyps (principal); D12.6 Benign neoplasm of colon, unspecified; K57.30 Diverticulosis of large intestine without perforation or abscess without bleeding; Z87.891 Personal history of nicotine dependence; E11.9 Type 2 diabetes mellitus without complications; Z79.51 Long term (current) use of inhaled steroids; Z79.82 Long term (current) use of aspirin; Z79.84 Long term (current) use of oral hypoglycemic drugs

== ENCOUNTER → 2024-01-04 | Outpatient (CLI) | payer MEDICARE, OTHER ==
[~2024-01-04] MED LIST changes: +ISOVUE-300 61% 100ML VIAL As Ordered ONE; +LIDOCAINE 1% MDV 20ML VIAL As Ordered ONE; +TRIAMCINOLONE ACETONIDE SUSP 40MG/ML 1ML VIAL As Ordered ONE
== END ==
LOC: M RAD 10:18
PROVIDERS: ATTEND Orthopaedic Surgery
DX: M16.11 Unilateral primary osteoarthritis, right hip (principal)
CPT/HCPCS: 20610; 77002; J3301; Q9967

== ENCOUNTER → 2024-01-13 | Outpatient (REF) | payer MEDICARE, OTHER ==
[~2024-01-13] MED LIST changes: -ISOVUE-300 61% 100ML VIAL As Ordered ONE; -LIDOCAINE 1% MDV 20ML VIAL As Ordered ONE; -TRIAMCINOLONE ACETONIDE SUSP 40MG/ML 1ML VIAL As Ordered ONE
[2024-01-13 18:33] LABS: PROSTATIC SPECIFIC AG MONITOR 0.33 NG/ML (< 4.00)
[2024-01-13 18:35] LABS: ALKALINE PHOSPHATASE 100 U/L (46-116); ALT/SGPT 51 U/L (7.0-40); AST/SGOT 47 U/L (<34); BASO % 0.6 % (0.0-1.0); BILIRUBIN,TOTAL 0.7 MG/DL (0.3-1.2); BLOOD UREA NITROGEN 19 MG/DL (9-23); CALCIUM LEVEL 9.4 MG/DL (8.3-10.6); CARBON DIOXIDE LEVEL 31 MMOL/L (20-31); CHLORIDE LEVEL 106 MMOL/L (98-107); CHOLESTEROL LEVEL 174 MG/DL (<200); CHOLESTEROL RISK RATIO 2.09 (<5); CREATININE FOR GFR 0.76 MG/DL (0.70-1.30); EOS # 0.1 10^3/uL (0.0-0.5); EOS % 2.1 % (0.0-3.0); GLOMERULAR FILTRATION RATE > 60.0 (>35); GLUCOSE, FASTING 140 MG/DL (74-106); HDL CHOLESTEROL 83.1 MG/DL (>40); HEMATOCRIT 41.8 % (42.0-52.0); HEMOGLOBIN 13.6 g/dl (13.5-17.5); LDL CHOLESTEROL 76.7 MG/DL (<100); LYMPH # 0.5 10^3/uL (1.5-5.0); LYMPH % 7.3 % (24.0-44.0); MEAN CORPUSCULAR HEMOGLOBIN 32.8 pg (27.0-33.0); MEAN CORPUSCULAR HGB CONC 32.5 g/dl (32.0-36.5); MEAN CORPUSCULAR VOLUME 100.7 fl (80.0-96.0); MONO # 0.4 10^3/uL (0.0-0.8); MONO % 6.5 % (2.0-8.0); NEUTROPHILS # 5.5 10^3/uL (1.5-8.5); NEUTROPHILS % 83.3 % (36.0-66.0); NON-HDL-C 90.9 MG/DL; PLATELET COUNT, AUTOMATED 176 10^3/uL (150-450); POTASSIUM SERUM 3.5 MMOL/L (3.5-5.1); RED BLOOD COUNT 4.15 10^6/uL (4.30-6.10); SODIUM LEVEL 142 MMOL/L (136-145); TOTAL PROTEIN 6.7 G/DL (5.7-8.2); TRIGLYCERIDES LEVEL 71 MG/DL (<150); WHITE BLOOD COUNT 6.6 10^3/uL (4.0-10.0)
[2024-01-13 18:57] LABS: HEMOGLOBIN A1c 5.8 % (4.0-6.0)
== END ==
LOC: M SFHCADAM 14:15
PROVIDERS: ATTEND Physician Assistant
DX: C61 Malignant neoplasm of prostate (principal); J44.9 Chronic obstructive pulmonary disease, unspecified; E11.9 Type 2 diabetes mellitus without complications; E55.9 Vitamin D deficiency, unspecified

== ENCOUNTER → 2024-02-26 | Outpatient (REF) | payer MEDICARE, OTHER | LOC: M LABSMT 08:33 | PROVIDERS: ATTEND Urology | DX: Z53.9 Procedure and treatment not carried out, unspecified reason (principal) ==

== ENCOUNTER → 2024-04-19 | Outpatient (CLI) | payer MEDICARE, OTHER ==
[2024-04-19 10:25] LABS: HEMOGLOBIN 13.1 g/dl (13.5-17.5); MEAN CORPUSCULAR HEMOGLOBIN 32.3 pg (27.0-33.0); MEAN CORPUSCULAR HGB CONC 32.8 g/dl (32.0-36.5); MEAN CORPUSCULAR VOLUME 98.8 fl (80.0-96.0); PLATELET COUNT, AUTOMATED 187 10^3/uL (150-450); RED BLOOD COUNT 4.05 10^6/uL (4.30-6.10); WHITE BLOOD COUNT 3.7 10^3/uL (4.0-10.0)
[2024-04-19 10:33] LABS: ERYTHROCYTE SEDIMENTATION RATE 23 mm/hr (0-20)
[2024-04-19 10:35] LABS: INR 0.91; PROTHROMBIN TIME 12.6 SECONDS (12.5-14.5)
[2024-04-19 11:03] LABS: ALBUMIN 3.7 G/DL (3.2-5.2); ALKALINE PHOSPHATASE 106 U/L (40-129); ALT/SGPT 45 U/L (7.0-40); AST/SGOT 44 U/L (<34); BILIRUBIN,TOTAL 0.5 MG/DL (0.3-1.2); BLOOD UREA NITROGEN 26 MG/DL (9-23); CALCIUM LEVEL 9.8 MG/DL (8.3-10.6); CARBON DIOXIDE LEVEL 32 MMOL/L (20-31); CHLORIDE LEVEL 104 MMOL/L (98-107); CREATININE FOR GFR 0.87 MG/DL (0.70-1.30); GLOMERULAR FILTRATION RATE > 60.0 (>35); GLUCOSE, FASTING 107 MG/DL (74-106); POTASSIUM SERUM 3.9 MMOL/L (3.5-5.1); SODIUM LEVEL 143 MMOL/L (136-145); TOTAL PROTEIN 6.6 G/DL (5.7-8.2)
== END ==
LOC: M RAD 09:26
PROVIDERS: ATTEND Orthopaedic Surgery
DX: Z01.818 Encounter for other preprocedural examination (principal); Z79.01 Long term (current) use of anticoagulants

== ENCOUNTER → 2024-07-25 | Outpatient (REF) | payer MEDICARE, OTHER ==
[~2024-07-25] MED LIST changes: -ADV250INH INH; +ADVA1AER9 INH
[2024-07-25 13:08] LABS: BASO % 0.9 % (0.0-1.0); EOS # 0.1 10^3/uL (0.0-0.5); EOS % 2.6 % (0.0-3.0); HEMATOCRIT 41.2 % (42.0-52.0); HEMOGLOBIN 13.1 g/dl (13.5-17.5); LYMPH # 0.5 10^3/uL (1.5-5.0); LYMPH % 11.9 % (24.0-44.0); MEAN CORPUSCULAR HEMOGLOBIN 31.1 pg (27.0-33.0); MEAN CORPUSCULAR HGB CONC 31.8 g/dl (32.0-36.5); MEAN CORPUSCULAR VOLUME 97.9 fl (80.0-96.0); MONO # 0.3 10^3/uL (0.0-0.8); MONO % 7.3 % (2.0-8.0); NEUTROPHILS # 3.5 10^3/uL (1.5-8.5); NEUTROPHILS % 76.9 % (36.0-66.0); PLATELET COUNT, AUTOMATED 198 10^3/uL (150-450); RED BLOOD COUNT 4.21 10^6/uL (4.30-6.10); WHITE BLOOD COUNT 4.6 10^3/uL (4.0-10.0)
[2024-07-25 13:15] LABS: FREE T4 1.31 NG/DL (0.89-1.76); THYROID STIMULATING HORMONE 2.779 uIU/ML (0.55-4.78)
[2024-07-25 13:20] LABS: BLOOD UREA NITROGEN 16 MG/DL (9-23); CALCIUM LEVEL 9.1 MG/DL (8.3-10.6); CARBON DIOXIDE LEVEL 30 MMOL/L (20-31); CHLORIDE LEVEL 106 MMOL/L (98-107); CREATININE FOR GFR 0.77 MG/DL (0.70-1.30); GLOMERULAR FILTRATION RATE > 60.0 (>35); GLUCOSE, FASTING 141 MG/DL (74-106); POTASSIUM SERUM 4.3 MMOL/L (3.5-5.1); SODIUM LEVEL 144 MMOL/L (136-145)
[2024-07-25 13:24] LABS: HEMOGLOBIN A1c 5.7 % (4.0-6.0)
== END ==
LOC: M SFHCADAM 10:09
PROVIDERS: ATTEND Physician Assistant
DX: Z00.00 Encounter for general adult medical examination without abnormal findings (principal); J44.9 Chronic obstructive pulmonary disease, unspecified; E55.9 Vitamin D deficiency, unspecified; E11.9 Type 2 diabetes mellitus without complications; C61 Malignant neoplasm of prostate

== ENCOUNTER → 2025-02-09 | Outpatient (CLI) | payer MEDICARE, OTHER | LOC: M WUC 09:12 | PROVIDERS: ATTEND Urology | DX: C61 Malignant neoplasm of prostate (principal) ==

== ENCOUNTER → 2025-05-18 | Outpatient (CLI) | payer MEDICARE, OTHER ==
[~2025-05-18] MED LIST changes: +DARO300T PO; +FLUT1BLS3 INH
== END ==
LOC: M ONCR 08:41
PROVIDERS: ATTEND General Practice
DX: C61 Malignant neoplasm of prostate (principal); Z79.82 Long term (current) use of aspirin; Z79.84 Long term (current) use of oral hypoglycemic drugs; Z79.818 Long term (current) use of other agents affecting estrogen receptors and estrogen levels; Z79.899 Other long term (current) drug therapy; Z87.891 Personal history of nicotine dependence; Z96.641 Presence of right artificial hip joint